=== PATIENT | male | born 1975 | race Caucasian/White ===

== ENCOUNTER 2024-03-17 18:09 | Emergency (ER) | payer MEDICAID, SELFPAY ==
--- NOTE | 2024-03-17 18:28 | EKG_ITS ---
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
[2024-03-17 19:07] VITALS: BP 157/93; PULSE 95; RESP 19; TEMP 36.9; O2SAT 99; BMI 22.8
--- NOTE | 2024-03-17 19:19 | PD.EDRME ---
Rapid Medical Screening Exam RME Arrival date/time: 03/17/24 18:09 49M with history of DM, HLD, DVT/PE, and recent admission for perianal nec fasc, presents to ED for similar sensation sensation but this time it is on the other cheek. Patient states this time it doesn't feel as bad. Patient is also having a hard time controlling his BS even though he is taking his meds as prescribed. Chief Complaint: Skin/Abscess/Foreign Body Vital signs: Vital Signs Temperature 98.4 F 03/17/24 19:07 Pulse Rate 95 03/17/24 19:07 Respiratory Rate 19 03/17/24 19:07 Blood Pressure 157/93 H 03/17/24 19:07 Pulse Oximetry (%) 99 03/17/24 19:07 Oxygen Delivery Method Room Air 03/17/24 19:07
[2024-03-17 19:39] LABS: Lactate (Lactic Acid) 1.7 mMol/L (0.4-2.0)
[2024-03-17 19:41] LABS: Beta Hydroxybutyrate 0.2 mmol/L (<0.6)
[2024-03-17 20:04] LABS: Basophils # (Auto) 0.1 Thou/mm3 (0.0-0.2); Basophils % (Auto) 1 % (0-2.5); Eosinophils # (Auto) 0.2 Thou/mm3 (0.0-0.5); Eosinophils % (Auto) 3 % (0-10); Hematocrit 41.2 % (41.0-53.0); Hemoglobin 15.4 g/dL (13.5-16.0); Immature Granulocytes % (Auto) 1 % (0-0); Immature Granulocytes Auto 0.04 Thou/mm3 (0.00-0.00); Lymphocytes # (Auto) 2.4 Thou/mm3 (1.0-4.8); Lymphocytes % (Auto) 31 % (10-50); Mean Corpuscular HGB Conc 37.4 g/dl (31.0-37.0); Mean Corpuscular Hemoglobin 30.4 pg (25.0-35.0); Mean Corpuscular Volume 81 fL (80-100); Monocytes # (Auto) 0.8 Thou/mm3 (0.0-0.8); Monocytes % (Auto) 10 % (0-12); Neutrophils # (Auto) 4.4 Thou/mm3 (1.8-7.7); Neutrophils % (Auto) 56 % (37-80); Nucleated Red Blood Cell % 0 /100 WBC (0); Platelet Count 165 Thou/mm3 (140-440); RDW Standard Deviation 39.6 fL (35.1-43.9); Red Blood Count 5.06 Miln/mm3 (4.50-5.90); White Blood Count 7.9 Thou/mm3 (3.8-10.6)
[2024-03-17 20:17] LABS: Alanine Aminotransferase 23 U/L (10-49); Albumin, Serum 4.8 gm/dL (3.5-5.0); Albumin/Globulin Ratio 1.9 (1.2-2.2); Alkaline Phosphatase 138 U/L (46-116); Anion Gap 6 (7-16); Aspartate Amino Transferase 17 U/L (0-34); BUN/Creatinine Ratio 14 Ratio (12-20); Bilirubin,Total 0.8 mg/dL (0.3-1.2); Blood Urea Nitrogen 26 mg/dL (9-23); Calcium 9.8 mg/dL (8.3-10.6); Calcium (Corrected) 9.8 mg/dL (8.5-10.1); Carbon Dioxide 26.6 mMol/L (20.0-31.0); Chloride 102 mMol/L (98-107); Creatinine (Component) 1.9 mg/dL (0.6-1.3); Estimated Creatinine Clearance 52.4 mL/min (>60); Globulin 2.5 gm/dL (2.3-3.5); Osmolality,Calculated 293 (275-295); Potassium 4.2 mMol/L (3.4-5.1); Procalcitonin 0.06 ng/ml (0.0-0.49); Sodium 135 mMol/L (136-145); Total Protein 7.3 gm/dL (5.7-8.2); eGFR 42 See Note
[2024-03-17 20:19] LABS: Glucose 443 mg/dL (74-106)
[2024-03-17 20:45] VITALS: BP 145/91; PULSE 90; RESP 19; TEMP 36.8; O2SAT 98
--- NOTE | 2024-03-17 20:58 | EDNOTE_ITS ---
ED Skin Abcess FB-RME/HPI General Chief complaint: Skin/Abscess/Foreign Body Stated complaint: NAUSEA, ZAVALA, DIZZINESS, HIGH BS, PAIN TO BUTTOCKS Arrival date/time: 03/17/24 18:09 Limitations: no limitations RME / HPI RME / HPI narrative: 03/17/24 18:09 49M with history of DM, HLD, DVT/PE, and recent admission for perianal nec fasc, presents to ED for similar sensation sensation but this time it is on the other cheek. Patient states this time it doesn't feel as bad. Patient is also having a hard time controlling his BS even though he is taking his meds as prescribed. DR. JOHNSON MAIN ED EVALUATION: 49 year old male presents to the Emergency Department with complaint of buttocks pain similar to when he was recently admitted for necrotizing fasciitis of the buttocks. He also has nausea, a headache and dizziness. He has also has been having trouble controlling his blood sugar. Related Data Home Medications ?Medication ?Instructions ?Recorded ?Confirmed gabapentin 300 mg capsule 300 mg PO TID 06/27/22 12/26/23 insulin aspart U-100 100 unit/mL 1 sliding scale dose subcut 06/27/22 12/26/23 (3 mL) subcutaneous pen (Novolog USEASDIRECTD FlexPen U-100 Insulin aspart) atorvastatin 40 mg tablet (Lipitor) 40 mg PO DAILY 05/13/23 12/26/23 empagliflozin 25 mg tablet 25 mg PO DAILY 05/13/23 12/26/23 (Jardiance) semaglutide 14 mg tablet (Rybelsus) 14 mg PO DAILY 05/13/23 12/26/23 fluticasone 500 mcg-salmeterol 50 2 inh inhalation DAILY 07/19/23 12/26/23 mcg/dose blistr powdr for inhalation (Advair Diskus) insulin degludec 200 unit/mL (3 15 unit subcut BID 07/19/23 12/26/23 mL) subcutaneous pen (Tresiba FlexTouch U-200 insulin) tamsulosin 0.4 mg capsule 0.4 mg PO DAILY 07/19/23 12/26/23 Previous Rx's ?Medication ?Instructions ?Recorded blood-glucose meter #1 ea 11/24/23 flash glucose scanning reader #1 ea 11/24/23 (FreeStyle Suzanne 2 Cameron) flash glucose sensor (FreeStyle #1 ea 11/24/23 Suzanne 2 Sensor kit) insulin syringe-needle U-100 0.3 #100 11/24/23 mL 31 x 1/2 pen needle, diabetic 33 gauge x #100 ea 11/24/23 1/4 Allergies Allergy/AdvReac Type Severity Reaction Status Date / Time Penicillins Allergy Severe Mouth Verified 12/26/23 10:49 blisters/throat Review of Systems Review of Systems Systems Reviewed: All systems reviewed, normal except as documented Endocrine Comments: elevated Blood sugars. Past Medical History Past Medical History NEUROLOGIC: Positive Meningitis, Peripheral Neuropathy and Migraine CARDIAC: Positive Hypercholesterolemia and Edema RESPIRATORY: Positive Asthma and Pulmonary Embolism GASTROINTESTINAL: Positive Ulcer GENITOURINARY: Positive Genitourinary Disorders MUSCULOSKELETAL: Positive Arthritis, Degenerative Disk Disease and Gout ENDOCRINE: Positive Diabetes Mellitus Type 2 OTHER HISTORY: Positive Hospitalization, Falls and Chicken Pox Family History FAMILY HISTORY: Positive Family Cancer, Family Surgery and Family Anesthesia Reaction Social History SMOKING STATUS: Never smoker SECOND HAND EXPOSURE: No SUBSTANCE USE: does not use ALCOHOL: Never ED Exam Narrative Physical exam: Patient appears clinically dehydrated with decreased membranes. Appears fatigued. General Limitations: Present no limitations General appearance: Present alert, in no apparent distress and other (No diaphoresis) Head Head exam: Present normocephalic Eye Eye exam: Present normal appearance and EOMI ENT ENT exam: Present normal exam, normal oropharynx and mucous membranes moist Neck Neck exam: Present normal inspection, full ROM and trachea midline Chest Chest inspection: Present normal inspection and symmetric chest wall rise Respiratory Respiratory exam: Present normal lung sounds bilaterally Cardiovascular Cardiovascular exam: Present regular rate, normal rhythm and normal heart sounds Abdominal Exam Abdominal exam: Present soft and normal bowel sounds Rectal Exam Rectal exam: Present normal inspection, normal rectal tone and other (No skin changes, erythema, warmth, or crepitus. No changes in the scrotal area or perineal.) Extremities Exam Extremities exam: Present normal inspection and full ROM Back Exam Back exam: Present normal inspection and full ROM Neurological Exam Neurological exam: Present alert and oriented X3 Psychiatric Psychiatric exam: Present normal affect; Absent agitated or anxious Skin Skin exam: Present warm, dry, intact and normal color Course Quality Measures none Orders Category Date Time Status Blood glucose [Bedside Blood Glucose] NOW Care 03/17/24 19:[address] Screening NOW Care 03/17/24 23:43 Completed EKG (ED ONLY) *Do not use* NOW Care 03/17/24 18:28 Completed Insert IV NOW Care 03/17/24 23:[address] abdomen pelvis w con Stat Exams 03/17/24 23:43 Completed EKG (ED Only) Stat Exams 03/17/24 18:28 Draft Beta Hydroxybutyrate Stat Lab 03/17/24 19:31 Completed CBC Stat Lab 03/17/24 20:00 Completed CMP [Comprehensive Metabolic Panel] Stat Lab 03/17/24 19:31 Completed Lactate (Lactic Acid) Stat Lab 03/17/24 19:31 Completed Procalcitonin Stat Lab 03/17/24 19:31 Completed Urinalysis Stat Lab 03/18/24 03:30 Completed Insulin Regular Med 03/17/24 23:43 Discontinued 10 unit IV X1 ONE Sodium Chloride 0.9% 1000 ml [Ns] 1,000 ml Med 03/17/24 23:42 Discontinued IV 999 mls/hr Sodium Chloride 0.9% 1000 ml [Ns] 1,000 ml Med 03/18/24 03:29 Discontinued IV 999 mls/hr Vital Signs Vital signs: Vital Signs Temperature 98.4 F 03/17/24 19:07 Pulse Rate 95 03/17/24 19:07 Respiratory Rate 19 03/17/24 19:07 Blood Pressure 157/93 H 03/17/24 19:07 Pulse Oximetry (%) 99 03/17/24 19:07 Oxygen Delivery Method Room Air 03/17/24 19:07 Procedures -ED EKG Interpretation #1: Date of EK03/17/24 Time of EK:13 Rate: 92 Interpretation: Interpreted by me Additional EKG comment: sinus rhythm, rate 92, normal intervals, normal axis, no elevations, no depressions Skin / Abscess / Foreign Body MDM Narrative MDM Narrative:: I, Gracia Ying, am scribing for and in the presence of Dr. Johnson. Patient data External records reviewed:: [facility] previous records (Reviewed general surgery note for necrotizing fasciitis by Dr. Lehman, dated 12/26/23.) Clinical information provided by:: patient Social determinants that could affect healthcare access:: none Patient has the following chronic illnesses:: Asthma, pulmonary embolism, diabetes, hypercholesterolemia. How is presenting disease/condition affected by chronic disease/condition?: uneffected by Evaluation data The following diagnostics were reviewed and interpreted by me:: lab results, radiology exam(s) and EKG tracing(s) Lab and/or radiology exams considered but not ordered:: none Interpretation Summary: See above under MDM narrative. ------ Telerad Preliminary Report Draft Patient: HELEN MENDES. Record#: [id number] Birthdate: 1975 Age/Sex: 49 / M Location: [facility] Attending Dr: Ordering Physician: Date of Service: Procedure(s): Accession Number(s): cc: ~ CT scan of the abdomen and pelvis with intravenous contrast (axial sections with sagittal and coronal reformats) March 18, 2024 at 0102 hours Clinical History: 49 year old with bilateral buttock pain. No prior study is available for comparison. Findings: The lung bases are clear. There are small hypodense lesions in the spleen, too small to characterise. The liver, gallbladder, pancreas, kidneys and adrenals are unremarkable. No evidence of bowel dilatation. There are occasional colonic diverticula without evidence of diverticulitis. The appendix is within normal limits. The urinary bladder wall is mildly thickened. There is mild prostatomegaly. There is no free fluid or free air. There is no adenopathy. Mild degenerative changes are identified in the spine. Impression: Findings suggestive of cystitis. Mild prostatomegaly. Other findings as described above. Report Electronically Signed By: Florentino Manning 03/18/2024 2:39:22 AM [EST] Medications / Prescriptions Medications or Prescriptions considered but not ordered:: none Medication administrations:: Medication Administration History Discontinued Medications Sodium Chloride (Ns) 1,000 mls @ 999 mls/hr IV .Q1H1M ONE Stop: 03/18/24 00:42 Last Infusion: 03/18/24 01:00 Dose: Infused Documented By: Admin: 03/17/24 23:51 Dose: 999 mls/hr Documented By: ADELA Sodium Chloride (Ns) 1,000 mls @ 999 mls/hr IV .Q1H1M ONE Stop: 03/18/24 04:29 Last Infusion: 03/18/24 04:12 Dose: 0 mls/hr Documented By: Admin: 03/18/24 04:12 Dose: 999 mls/hr Documented By: ADELA Insulin Human Regular (Insulin Hum Regular 1 Unit/0.01 Ml (Per Unit)) 10 unit IV X1 ONE Stop: 03/17/24 23:44 Last Admin: 03/17/24 23:53 Dose: 10 unit Documented By: ADELA Co-signed By: CYNDEE see above if any Consultations Consultation(s) initiated? (list below): No Diagnosis Skin/Abscess Differential Diagnosis: dermatophytosis, cellulitis, eczema, contact dermatitis and other (necrotizing fasciitis) Most likely diagnosis given after review of the tests above:: see below Admission Indicated Admission indicated?: not indicated Admission Request Was there a request for admission?: No Disposition Plan Disposition Plan: Discharge Discharge Attestation Discharge Attestation: The patient and all family members were given an opportunity to ask questions and understood the discharge instructions. Discharge instructions specifically effects, indications for sooner follow up or return to the emergency department, and the expected course of current diagnosis. Patient condition: Stable Discharge Plan Plan Patient Disposition: HOME (Self Care) Patient condition on transfer: Stable Prescriptions/Referrals Prescriptions/Med Rec: No Action tamsulosin 0.4 mg capsule 0.4 mg PO DAILY Patient Comments: TAKE 1 CAPSULE BY MOUTH TWICE A DAY FOR 30 DAYS fluticasone propion-salmeterol [Advair Diskus] 500-50 mcg/dose blister with device 2 inh INHALATION DAILY Patient Comments: INHALE 1 DOSE BY MOUTH TWICE DAILY. RINSE MOUTH AFTER USE FOR 30 DAYS insulin degludec [Tresiba FlexTouch U-200] 200 unit/mL (3 mL) insulin pen 15 unit SUBCUT BID Patient Comments: INJECT 50 UNITS SUBCUTANEOUSLY TWICE A DAY (DME) pen needle, diabetic 33 gauge x 1/4 needle See Rx Instructions .Route Qty: 100 0RF Rx Instructions: As directed (DME) insulin syringe-needle U-100 0.3 mL 31 x 1/2 syringe See Rx Instructions .Route Qty: 100 0RF Rx Instructions: As directed (DME) blood-glucose meter Kit See Rx Instructions .Route Qty: 1 0RF Rx Instructions: As directed (DME) FreeStyle Suzanne 2 Cameron Misc See Rx Instructions .Route Qty: 1 0RF Rx Instructions: As directed (DME) FreeStyle Suzanne 2 Sensor Kit See Rx Instructions .Route Qty: 1 0RF Rx Instructions: As directed gabapentin 300 mg Capsule 300 mg PO TID insulin aspart U-100 [Novolog FlexPen U-100 Insulin] 100 unit/mL (3 mL) Insulin Pen 1 sliding scale dose SUBCUT USEASDIRECTD atorvastatin [Lipitor] 40 mg tablet 40 mg PO DAILY Patient Comments: TAKE 1 TABLET BY MOUTH EVERY DAY FOR 90 DAYS Jardiance 25 mg tablet 25 mg PO DAILY Rybelsus 14 mg tablet 14 mg PO DAILY Patient Comments: TAKE 1 TABLET DAILY AT LEAST 30 MINUTES BEFORE 1ST FOOD, BEVERAGE, OR OTHER ORAL MEDICINE OF DAY Referrals: Robert Son MD [Primary Care Provider] - In 1 week Problem List Clinical Impression: Hyperglycemia Patient/Caregiver Discharge Instructions Education Materials: ED Diabetes with High Blood Sugar Additional Instructions: Return to the emergency department for any worsening symptoms or any other concerns. Today your CAT scan does not show that you have an infection. You can continue taking your medications as prescribed. Print Language: Setswana Stand Alone Forms: Sari Award Info., Patient Portal Info Letter
--- NOTE | 2024-03-17 23:43 | XR_ITS ---
Examination: CT abdomen with intravenous contrast CT pelvis with intravenous contrast 2-D coronal reconstructions 2-D sagittal reconstructions Date and time of exam:March 18, 2024 0102 hrs. Comparison November 18, 2023 Indications: Headaches nausea dizziness pain in the buttock region history necrotizing fasciitis, right perianal focus of infection early abscess 3.0 x 4.1 cm marked cellulitis right perineum right buttock region on CT abdomen November 18, 2023. CTDI: vol (mGy) 14.36 DLP: (mGycm) 652 Technique: Multiple axial sections of the abdomen and pelvis have been obtained. 64 slice high-resolution scanner used. 3 mm axial sections have been obtained, post intravenous injection 30 cc Isovue-300 2-D sagittal, coronal reconstructions obtained. Low dose protocols were performed. One or more of the following dose reduction techniques were used; automated exposure control, adjustment of the mA and/or KV according to patient size, use of iterative reconstruction technique. Findings: No focal liver or splenic lesions No gallstones No pancreatic or adrenal mass No renal or ureteral calculi, no hydronephrosis Aorta normal size Normal appendix No bowel obstruction Distended urinary bladder with diffuse urinary bladder wall thickening Normal seminal vesicles No significant prostatomegaly There is mild cellulitis pattern in the buttock region bilaterally extending to the intergluteal fold but no perianal abscess Impression: There is mild cellulitis pattern in the buttock region bilaterally extending to the intergluteal fold but no perianal abscess Distended urinary bladder with cystitis pattern
[2024-03-17] MEDS: SODIUM CHLORIDE 0.9% 1000 ML 1,000 ML 999 ML IV (23:51)
[2024-03-17] MEDS: INSULIN HUM REGULAR 1 UNIT/0.01 ML (PER UNIT) 10 UNIT IV (23:53)
[2024-03-18 00:21] VITALS: BP 137/77; PULSE 79; RESP 18; O2SAT 99
--- NOTE | 2024-03-18 02:40 | PRELIM_ITS ---
CT scan of the abdomen and pelvis with intravenous contrast (axial sections with sagittal and coronal reformats) March 18, 2024 at 0102 hoursClinical History: 49 year old with bilateral buttock pain. No prior study is available for comparison. Findings:The lung bases are clear.There are small hypoden se lesions in the spleen, too small to characterise. The liver, gallbladder, pancreas, kidneys and ad renals are unremarkable.No evidence of bowel dilatation. There are occasional colonic diverticula wit hout evidence of diverticulitis. The appendix is within normal limits. The urinary bladder wall is mi ldly thickened. There is mild prostatomegaly. There is no free fluid or free air. There is no adenop athy.Mild degenerative changes are identified in the spine. Impression:Findings suggestive of cystiti s.Mild prostatomegaly.Other findings as described above. Report Electronically Signed By: Florentino kessler 03/18/2024 2:39:22 AM [EST]
[2024-03-18 02:57] VITALS: BP 135/82; PULSE 73; RESP 19; TEMP 36.6; O2SAT 98
[2024-03-18 03:35] LABS: Collection Type, Urine Voided; RBC,Urine 0 /hpf (0-3); Squamous Epithelial Cell,Urine 0 /hpf (0-5); WBC,Urine 0 /hpf (0-5)
[2024-03-18 03:50] LABS: Bilirubin,Urine Negative (Negative); Blood,Urine Negative (Negative); Clarity,Urine Clear (Clear/Hazy); Color,Urine Lt-Yellow (Lt Yel-Yel); Glucose, Urine 4+ (Negative); Hyaline Casts,Urine < 1 /hpf (0-1); Ketones,Urine Negative (Negative); Leukocyte Esterase,Urine Negative (Negative); Nitrite,Urine Negative (Negative); Protein,Urine 1+ (Neg - Trace); Specific Gravity,Urine 1.027 (1.001-1.035); Urobilinogen,Urine Negative mg/dL (0.0-1.0)
[2024-03-18] MEDS: SODIUM CHLORIDE 0.9% 1000 ML 1,000 ML 999 ML IV (04:12)
[2024-03-18 04:41] VITALS: BP 144/91; PULSE 88; RESP 16; TEMP 36.7; O2SAT 100
== END 2024-03-18 04:42 | disposition home or self-care (01) ==
PROVIDERS: Physician Assistant; Emergency Provider Emergency Medicine; PCP Family Medicine
DX: E11.65 Type 2 diabetes mellitus with hyperglycemia (principal); N40.0 Benign prostatic hyperplasia without lower urinary tract symptoms; J45.909 Unspecified asthma, uncomplicated; E78.00 Pure hypercholesterolemia, unspecified
CPT/HCPCS: 36415; 74177; 80053; 81001; 82010; 83605; 84145; 85025; 93005; 96360; 99285; A4649; J1815; J7030; Q9967

== ENCOUNTER 2024-07-18 19:40 | Emergency (ER) | payer MEDICAID, SELFPAY ==
[2024-07-18 19:41] VITALS: BMI 28.5
[2024-07-18 20:02] VITALS: BP 148/89; PULSE 109; RESP 18; TEMP 36.9; O2SAT 98
[2024-07-18 20:37] LABS: Collection Type, Urine Clean Catch
[2024-07-18 20:48] LABS: Bilirubin,Urine Negative (Negative); Blood,Urine 2+ (Negative); Clarity,Urine Clear (Clear/Hazy); Color,Urine Yellow (Lt Yel-Yel); Culture Indicated,Urine Not Indicated; Glucose, Urine 3+ (Negative); Hyaline Casts,Urine < 1 /hpf (0-1); Ketones,Urine Negative (Negative); Leukocyte Esterase,Urine Negative (Negative); Nitrite,Urine Negative (Negative); Protein,Urine 3+ (Neg - Trace); RBC,Urine 20 /hpf (0-3); Specific Gravity,Urine 1.024 (1.001-1.035); Squamous Epithelial Cell,Urine < 1 /hpf (0-5); Urobilinogen,Urine Negative mg/dL (0.0-1.0); WBC,Urine 2 /hpf (0-5)
--- NOTE | 2024-07-18 20:58 | XR_ITS ---
Examination: CT abdomen and pelvis without contrast. Coronal 3-D reconstructions. Sagittal 2-D reconstructions. Date and time of exam:August 07, 2024 2139 hrs. Indications: Pain with urination hematuria beginning yesterday CTDI: vol (mGy): 7.93 DLP: (mGycm): 522 Technique: Axial images of the abdomen have been obtained, 3 mm slice thickness Intravenous contrast material has not been administered. Low dose protocols were performed. One or more of the following dose reduction techniques were used; automated exposure control, adjustment of the mA and/or KV according to patient size, use of iterative reconstruction technique. Findings: No focal liver or splenic lesions Contracted gallbladder No pancreatic or adrenal mass No renal or ureteral calculi Aorta normal size Abundant stool right colon Normal appendix No bowel obstruction No diverticulitis Marked abnormal thickening of urinary bladder wall, 16mm Prostatomegaly mediolateral dimension 4.7 cm Mild cellulitis pattern in the buttock region bilaterally axial image 275, no perianal abscess Mild osteopenia Impression: No renal or ureteral calculi Normal appendix Marked abnormal thickening of urinary bladder, 16 mm, differential would include cystitis, urinary tract outflow obstruction secondary to prostatomegaly, bladder carcinoma not excluded, clinical correlation advised Consider cystoscopy follow-up Moderate prostatomegaly Mild cellulitis pattern in the buttock region bilaterally
[2024-07-18] MEDS: TRIMETHOPRIM/SULFA 160/800 DS TABLET 1 TAB PO (23:43)
--- NOTE | 2024-07-19 01:31 | PD.EDMALE ---
ED Male Genitalurinary RME/HPI General Chief complaint: Urogenital-Male Stated complaint: PAIN WITH URINATION X2DAYS Time Seen by Provider: 07/18/24 20:12 Arrival date/time: 07/18/24 19:40 49M with history of DM presents to ED with 2 days of dysuria. Limitations: no limitations Related Data Home Medications ?Medication ?Instructions ?Recorded ?Confirmed gabapentin 300 mg capsule 300 mg PO TID 06/27/22 12/26/23 insulin aspart U-100 100 unit/mL 1 sliding scale dose subcut 06/27/22 12/26/23 (3 mL) subcutaneous pen (Novolog USEASDIRECTD FlexPen U-100 Insulin aspart) atorvastatin 40 mg tablet (Lipitor) 40 mg PO DAILY 05/13/23 12/26/23 empagliflozin 25 mg tablet 25 mg PO DAILY 05/13/23 12/26/23 (Jardiance) semaglutide 14 mg tablet (Rybelsus) 14 mg PO DAILY 05/13/23 12/26/23 fluticasone 500 mcg-salmeterol 50 2 inh inhalation DAILY 07/19/23 12/26/23 mcg/dose blistr powdr for inhalation (Advair Diskus) insulin degludec 200 unit/mL (3 15 unit subcut BID 07/19/23 12/26/23 mL) subcutaneous pen (Tresiba FlexTouch U-200 insulin) tamsulosin 0.4 mg capsule 0.4 mg PO DAILY 07/19/23 12/26/23 Previous Rx's ?Medication ?Instructions ?Recorded blood-glucose meter #1 11/24/23 flash glucose scanning reader #1 11/24/23 (FreeStyle Suzanne 2 [place]) flash glucose sensor (FreeStyle #1 11/24/23 Suzanne 2 Sensor kit) insulin syringe-needle U-100 0.3 #100 11/24/23 mL 31 x 1/2 pen needle, diabetic 33 gauge x #100 11/24/23/4 sulfamethoxazole 800 1 tab PO BID 7 days #14 tabs 07/18/24 mg-trimethoprim 160 mg tablet (Bactrim DS) Allergies Allergy/AdvReac Type Severity Reaction Status Date / Time Penicillins Allergy Severe Mouth Verified 12/26/23 10:49 blisters/throat Review of Systems Review of Systems Systems Reviewed: All systems reviewed, normal except as documented Constitutional Constitutional: Reports system reviewed and no additional complaints, except as documented, Denies fever(s) and Denies headache(s) ENT Ears, Nose, Mouth, and Throat: Denies disequilibrium and Denies headache(s) Cardiovascular Cardiovascular: Reports system reviewed and no additional complaints, except as documented, Denies chest pain and Denies dyspnea Respiratory Respiratory: Reports system reviewed and no additional complaints, except as documented, Denies cough and Denies dyspnea Gastrointestinal Gastrointestinal: Reports system reviewed and no additional complaints, except as documented, Denies abdominal pain, Denies nausea and Denies vomiting Genitourinary Genitourinary: Reports as per HPI and Reports dysuria Neurologic Neurologic: Reports system reviewed and no additional complaints, except as documented, Denies confusion, Denies disequilibrium and Denies headache(s) Psychiatric Psychiatric: Denies confusion Past Medical History Past Medical History NEUROLOGIC: Positive Meningitis, Peripheral Neuropathy and Migraine; Negative Neurological Disorders or Seizures CARDIAC: Positive Cardiac Disorders, Hypercholesterolemia and Edema; Negative Cardiac Arrhythmia, Atrial Fibrillation, Angina, Coronary Artery Disease, Atherosclerotic Heart Disease, Aneurysm, Congestive Heart Failure, Deep Vein Thrombosis or Hypertension RESPIRATORY: Positive Pulmonary Embolism; Negative Chronic Obstructive Pulmonary Disease (COPD) or Asthma GASTROINTESTINAL: Positive Ulcer; Negative Gastrointestinal Disorders, Hepatitis or Colorectal Cancer GENITOURINARY: Positive Genitourinary Disorders; Negative Renal Disease or Prostate Cancer REPRODUCTIVE: Negative Breast Cancer or Testicular Cancer MUSCULOSKELETAL: Positive Arthritis, Degenerative Disk Disease and Gout; Negative Musculoskeletal Disorders, Bone Cancer or Fractures ENDOCRINE: Positive Diabetes Mellitus Type 2; Negative Endocrine Disorders or Diabetes Mellitus Type 1 HEMATOLOGIC: Negative Blood Disorders or Sickle Cell Disease PSYCHO/SOCIAL: Negative Depression or Anxiety OTHER HISTORY: Positive Hospitalization, Falls and Chicken Pox; Negative Autoimmune Disease, Down Syndrome, Developmental Delay, Shingles, Blood Transfusions, Blood Transfusion Reaction, Anesthesia Reactions, Organ Transplant, Chemotherapy, Radiation Therapy, Hyperbaric Therapy, MRSA, VRSA, Vancomycin-Resistant Enterococci, Human Immunodeficiency Virus (HIV), Measles, Mumps, Rubella ([place] Measles), Pertussis, Clostridium Difficile, Breast Cancer, Colorectal Cancer, Lung Cancer, Prostate Cancer or Testicular Cancer Family History FAMILY HISTORY: Positive Family Cancer, Family Surgery and Family Anesthesia Reaction; Negative Family Psychiatric Problems, Family Respiratory Disorders, Family Cardiac Disorders or Family Gastrointestinal Problems Surgical History SURGICAL: Negative Organ Transplant Social History SMOKING STATUS: Never smoker SECOND HAND EXPOSURE: No SUBSTANCE USE: does not use ED Exam General Limitations: Present no limitations General appearance: Present alert and in no apparent distress Head Head exam: Present atraumatic Eye Eye exam: Present normal appearance, PERRL and EOMI ENT ENT exam: Present normal exam, normal oropharynx and mucous membranes moist Neck Neck exam: Present normal inspection, full ROM and trachea midline Chest Chest inspection: Present normal inspection and symmetric chest wall rise Respiratory Respiratory exam: Present normal lung sounds bilaterally Cardiovascular Cardiovascular exam: Present regular rate, normal rhythm and normal heart sounds Abdominal Exam Abdominal exam: Present soft and normal bowel sounds Rectal Exam Rectal exam: Present other (bilateral buttock redness/tenderness (mild)) Extremities Exam Extremities exam: Present normal inspection and full ROM Back Exam Back exam: Present normal inspection and full ROM Neurological Exam Neurological exam: Present alert, oriented X3 and CN II-XII intact Psychiatric Psychiatric exam: Present normal affect and normal mood Skin Skin exam: Present warm, dry, intact and normal color Course Quality Measures none Orders Category Date Time Status CT abdomen pelvis wo con Stat Exams 07/18/24 20:58 Completed Urinalysis, C/S if Indicated Stat Lab 07/18/24 20:17 Completed Trimethoprim/Sulfa 160/800 Ds [Bactrim Ds] Med 07/18/24 23:26 Discontinued 1 tab PO X1 ONE Vital Signs Vital signs: Vital Signs Temperature 98.4 F 07/18/24 20:02 Pulse Rate 109 H 07/18/24 20:02 Respiratory Rate 18 07/18/24 20:02 Blood Pressure 148/89 H 07/18/24 20:02 Pulse Oximetry (%) 98 07/18/24 20:02 Oxygen Delivery Method Room Air 07/18/24 20:02 O2 at 98% on RA and WNLs Urogenital - Male MDM Narrative MDM Narrative:: 49M with history of DM presents to ED with 2 days of dysuria. Physical exam reveals no CVA/flank tenderness. Patient is afebrile, calm, and alert. UA only blood. CT reveals no kidney stone, possible cystitis vs early bladder cancer. Separately, CT states possible mild bilateral buttock cellulitis. Physical exam with credit products officer reveals mild redness and tenderness around buttock area. Patient states he recently had nec fasc in that area, but this feels different. Will give Bactrim to cover cellulitis and possible UTI. Counseled to see PCP for additional evaluation for possible bladder cancer. Patient data External records reviewed:: [facility] previous records Clinical information provided by:: patient Social determinants that could affect healthcare access:: none Patient has the following chronic illnesses:: DM How is presenting disease/condition affected by chronic disease/condition?: exacerbated by Evaluation data The following diagnostics were reviewed and interpreted by me:: lab results and radiology exam(s) Lab and/or radiology exams considered but not ordered:: ordered Interpretation Summary: above Medications / Prescriptions Medications or Prescriptions considered but not ordered:: ordered Medication administrations:: Medication Administration History Discontinued Medications Trimethoprim/Sulfamethoxazole (Trimethoprim/Sulfa 160/800 Ds Tablet) 1 tab PO X1 ONE Stop: 07/18/24 23:27 Last Admin: 07/18/24 23:43 Dose: 1 tab Documented By: KF above Consultations Consultation(s) initiated? (list below): No Diagnosis Urogenital Male Differential Diagnosis: urinary tract infection, urethritis, epididymitis, genital herpes simplex, prostatitis, acute retention of urine, inguinal hernia and other (dysuria and cellulitis) Most likely diagnosis given after review of the tests above:: dysuria and cellulitis Admission Indicated Admission indicated?: not indicated Admission Request Was there a request for admission?: No Disposition Plan Disposition Plan: Discharge Discharge Attestation Discharge Attestation: The patient and all family members were given an opportunity to ask questions and understood the discharge instructions. Discharge instructions specifically effects, indications for sooner follow up or return to the emergency department, and the expected course of current diagnosis. Patient condition: Stable Discharge Plan Plan Patient Disposition: HOME (Self Care) Disposition Comment: Stable Prescriptions/Referrals Prescriptions/Med Rec: New sulfamethoxazole-trimethoprim [Bactrim DS] 800-160 mg tablet 1 tab PO BID 7 Days Qty: 14 0RF No Action tamsulosin 0.4 mg capsule 0.4 mg PO DAILY Patient Comments: TAKE 1 CAPSULE BY MOUTH TWICE A DAY FOR 30 DAYS fluticasone propion-salmeterol [Advair Diskus] 500-50 mcg/dose blister with device 2 inh INHALATION DAILY Patient Comments: INHALE 1 DOSE BY MOUTH TWICE DAILY. RINSE MOUTH AFTER USE FOR 30 DAYS insulin degludec [Tresiba FlexTouch U-200] 200 unit/mL (3 mL) insulin pen 15 unit SUBCUT BID Patient Comments: INJECT 50 UNITS SUBCUTANEOUSLY TWICE A DAY (DME) pen needle, diabetic 33 gauge x 1/4 needle See Rx Instructions .Route Qty: 100 0RF Rx Instructions: As directed (DME) insulin syringe-needle U-100 0.3 mL 31 x 1/2 syringe See Rx Instructions .Route Qty: 100 0RF Rx Instructions: As directed (DME) blood-glucose meter Kit See Rx Instructions .Route Qty: 1 0RF Rx Instructions: As directed (DME) FreeStyle Suzanne 2 [place] Misc See Rx Instructions .Route Qty: 1 0RF Rx Instructions: As directed (DME) FreeStyle Suzanne 2 Sensor Kit See Rx Instructions .Route Qty: 1 0RF Rx Instructions: As directed gabapentin 300 mg Capsule 300 mg PO TID insulin aspart U-100 [Novolog FlexPen U-100 Insulin] 100 unit/mL (3 mL) Insulin Pen 1 sliding scale dose SUBCUT USEASDIRECTD atorvastatin [Lipitor] 40 mg tablet 40 mg PO DAILY Patient Comments: TAKE 1 TABLET BY MOUTH EVERY DAY FOR 90 DAYS Jardiance 25 mg tablet 25 mg PO DAILY Rybelsus 14 mg tablet 14 mg PO DAILY Patient Comments: TAKE 1 TABLET DAILY AT LEAST 30 MINUTES BEFORE 1ST FOOD, BEVERAGE, OR OTHER ORAL MEDICINE OF DAY Referrals: Robert Son MD [Primary Care Provider] - In 1 week Problem List Clinical Impression: Cellulitis, Dysuria Patient/Caregiver Discharge Instructions Education Materials: Dysuria, ED Cellulitis Additional Instructions: Please follow-up with PCP within 24-48 hours and return immediately if symptoms worsen. Follow-up with PCP/urologist for additional evaluation. Print Language: Vietnamese Stand Alone Forms: Patient Portal Info Letter KASEY/STAVE [employer] Supervising Physician KASEY/NAIMA Supervising Physician: Dr. Santiago
== END 2024-07-18 23:44 | disposition home or self-care (01) ==
PROVIDERS: Physician Assistant; Emergency Provider Emergency Medicine; PCP Family Medicine
DX: L03.317 Cellulitis of buttock (principal); R30.0 Dysuria; E11.42 Type 2 diabetes mellitus with diabetic polyneuropathy; E78.00 Pure hypercholesterolemia, unspecified
CPT/HCPCS: 74176; 81001; 99284; A9270

== ENCOUNTER → 2024-11-13 | Outpatient (CLI) | payer MEDICAID, SELFPAY ==
--- NOTE | 2024-11-13 08:45 | XR_ITS ---
Examination: Retroperitoneal ultrasound, complete Technique: Multiple high resolution grayscale images of the retroperitoneum obtained, including kidneys and bladder. Exam date and time:November 13, 2024 0851 hours INDICATIONS: Chronic kidney disease stage III a FINDINGS: Right kidney 11.9 cm cortex 1.2 cm Left kidney 13.6 cm renal cortex 1.3 cm No hydronephrosis or renal calculi Bladder prevoid volume 765 cc unable to void Prostate volume 52 cc no prostate nodules IMPRESSION: Bilateral renal cortical thinning No hydronephrosis or renal calculi Moderate prostatomegaly
[2024-11-13 09:40] LABS: Collection Type, Urine Clean Catch; Squamous Epithelial Cell,Urine 0 /hpf (0-5)
[2024-11-13 10:09] LABS: Glucose Estimated Average 286 mg/dL (80-131); Hemoglobin A1C 11.6 % Hgb (4.8-6.0)
[2024-11-13 10:10] LABS: Parathyroid Hormone Intact 43.0 pg/ml (18.5-88.0)
[2024-11-13 10:14] LABS: Vitamin D 25 Hydroxy Total 13.1 ng/mL (7.3-40.2)
[2024-11-13 10:16] LABS: Albumin, Serum 4.2 gm/dL (3.5-5.0); Anion Gap 10 (7-16); BUN/Creatinine Ratio 13 Ratio (12-20); Blood Urea Nitrogen 23 mg/dL (9-23); Calcium 9.5 mg/dL (8.3-10.6); Calcium (Corrected) 9.5 mg/dL (8.5-10.1); Carbon Dioxide 26.2 mMol/L (20.0-31.0); Chloride 107 mMol/L (98-107); Creatinine (Component) 1.8 mg/dL (0.6-1.3); Glucose 152 mg/dL (74-106); Osmolality,Calculated 291 (275-295); Phosphorous 3.6 mg/dL (2.4-5.1); Potassium 4.7 mMol/L (3.4-5.1); Sodium 143 mMol/L (136-145); eGFR 45 See Note
[2024-11-13 10:24] LABS: Bilirubin,Urine Negative (Negative); Blood,Urine 1+ (Negative); Clarity,Urine Clear (Clear/Hazy); Color,Urine Lt-Yellow (Lt Yel-Yel); Glucose, Urine 4+ (Negative); Hyaline Casts,Urine < 1 /hpf (0-1); Ketones,Urine Negative (Negative); Leukocyte Esterase,Urine Negative (Negative); Nitrite,Urine Negative (Negative); PH,Urine 6.0 (5.0-7.0); Protein,Urine 2+ (Neg - Trace); RBC,Urine 2 /hpf (0-3); Specific Gravity,Urine 1.012 (1.001-1.035); Urobilinogen,Urine Negative mg/dL (0.0-1.0); WBC,Urine < 1 /hpf (0-5)
[2024-11-13 10:26] LABS: Creatinine MALB Rnd Ur 79 mg/dL (30-125)
[2024-11-13 10:36] LABS: Microalbumin Creat Ratio 1548 mg/gCrea (<30); Microalbumin, Random Urine 1223 mg/L (0-300)
[2024-11-16 06:30] LABS: C-Peptide* 1.41 ng/mL (0.80-3.85)
== END | disposition home or self-care (01) ==
LOC: CDIM 08:33 → COPL 09:04
PROVIDERS: Referring Provider Internal Medicine; Visit Provider Radiology Diagnostic Radiology
DX: N28.89 Other specified disorders of kidney and ureter (principal); N40.0 Benign prostatic hyperplasia without lower urinary tract symptoms; I12.9 Hypertensive chronic kidney disease with stage 1 through stage 4 chronic kidney disease, or unspecified chronic kidney disease; E11.22 Type 2 diabetes mellitus with diabetic chronic kidney disease; N18.32 Chronic kidney disease, stage 3b; E78.5 Hyperlipidemia, unspecified
CPT/HCPCS: 36415; 76770; 80069; 81001; 82043; 82306; 82570; 83036; 83970; 84681

== ENCOUNTER 2024-11-16 21:26 | Emergency (ER) | payer MEDICAID, SELFPAY ==
[2024-11-16 21:27] VITALS: BMI 28.5
[2024-11-16 22:36] VITALS: BP 131/78; PULSE 88; RESP 20; TEMP 36.9; O2SAT 97
--- NOTE | 2024-11-16 22:52 | XR_ITS ---
Examination: Arterial duplex lower extremity study, unilateral left Date and time of exam: November 16, 2024 at 1142 hours INDICATIONS: Left leg swelling and pain beginning several days ago Findings: Duplex sonographic imaging of the lower extremity arteries using B-mode/Keith scale imaging and Doppler spectral analysis and color flow. Ankle brachial indices have been recorded. Left common femoral artery demonstrates triphasic flow. Left superficial femoral artery demonstrates triphasic flow. Left popliteal artery demonstrates triphasic flow. Left posterior tibial artery demonstrated monophasic flow. Left ankle/brachial index is 1.1. Impression: Abnormal study, monophasic and markedly reduced flow in the left posterior tibial artery, please see the CTA lower extremity runoff study this morning
--- NOTE | 2024-11-16 22:52 | XR_ITS ---
Examination: Duplex scan of the lower extremity, unilateral left Date and time of exam: November 16, 2024 11:35 PM INDICATIONS: Left leg swelling and pain several days Technique: Duplex scan of the extremity veins using B-mode/grayscale imaging and Doppler spectral analysis and color flow Attention is directed to internal echogenicity, compression and augmentation involving these veins, color flow assessment, spectral analysis Findings: Major deep venous structures in the extremity demonstrate normal course and caliber. There is no evidence of deep vein thrombosis. Normal color flow and spectral analysis Impression: Negative for DVT..
[2024-11-16 23:23] LABS: Basophils # (Auto) 0.0 Thou/mm3 (0.0-0.2); Basophils % (Auto) 1 % (0-2.5); Eosinophils # (Auto) 0.6 Thou/mm3 (0.0-0.5); Eosinophils % (Auto) 9 % (0-10); Hematocrit 37.1 % (41.0-53.0); Hemoglobin 13.3 g/dL (13.5-16.0); Immature Granulocytes Auto 0.02 Thou/mm3 (0.00-0.00); Lymphocytes # (Auto) 1.9 Thou/mm3 (1.0-4.8); Lymphocytes % (Auto) 29 % (10-50); Mean Corpuscular HGB Conc 35.8 g/dl (31.0-37.0); Mean Corpuscular Hemoglobin 31.4 pg (25.0-35.0); Mean Corpuscular Volume 88 fL (80-100); Monocytes # (Auto) 0.5 Thou/mm3 (0.0-0.8); Monocytes % (Auto) 7 % (0-12); Neutrophils # (Auto) 3.5 Thou/mm3 (1.8-7.7); Neutrophils % (Auto) 53 % (37-80); Nucleated Red Blood Cell # 0.00 Thou/mm3 (0.00-0.00); Nucleated Red Blood Cell % 0 /100 WBC (0); Platelet Count 133 Thou/mm3 (140-440); RDW Standard Deviation 40.3 fL (35.1-43.9); Red Blood Count 4.23 Miln/mm3 (4.50-5.90); White Blood Count 6.6 Thou/mm3 (3.8-10.6)
[2024-11-16 23:34] LABS: INR 1.0 (0.9-1.3); Partial Thromboplastin Time 27.6 Seconds (22.0-36.0); Prothrombin Time 10.5 Seconds (9.0-12.2)
[2024-11-16 23:38] LABS: Alanine Aminotransferase 14 U/L (10-49); Albumin, Serum 4.0 gm/dL (3.5-5.0); Albumin/Globulin Ratio 2.1 (1.2-2.2); Alkaline Phosphatase 104 U/L (46-116); Anion Gap 9 (7-16); Aspartate Amino Transferase 13 U/L (0-34); BUN/Creatinine Ratio 12 Ratio (12-20); Bilirubin,Total 0.5 mg/dL (0.3-1.2); Blood Urea Nitrogen 23 mg/dL (9-23); Calcium 9.1 mg/dL (8.3-10.6); Calcium (Corrected) 9.1 mg/dL (8.5-10.1); Carbon Dioxide 27.3 mMol/L (20.0-31.0); Chloride 102 mMol/L (98-107); Creatinine (Component) 1.9 mg/dL (0.6-1.3); Estimated Creatinine Clearance 55.1 mL/min (>60); Globulin 1.9 gm/dL (2.3-3.5); Glucose 237 mg/dL (74-106); Osmolality,Calculated 287 (275-295); Potassium 4.4 mMol/L (3.4-5.1); Sodium 138 mMol/L (136-145); Total Protein 5.9 gm/dL (5.7-8.2); eGFR 42 See Note
--- NOTE | 2024-11-17 00:21 | XR_ITS ---
Examination: CT left knee, without contrast. 2-D sagittal reconstructions. 2-D coronal reconstructions. 3-D reconstructions. Date and time of exam:November 17, 2024, 0114 hours INDICATIONS: Patient fell today with injury to the knee, knee pain CTDI: vol (mGy):10.31 DLP: (mGycm):383 Technique: Multiple 1.25 mm axial sections of the left knee without intravenous contrast have been obtained. 2-D sagittal and coronal reconstructions have been obtained. 3-D reconstructions have been obtained. Low dose protocols were performed. One or more of the following dose reduction techniques were used; automated exposure control, adjustment of the mA and/or KV according to patient size, use of iterative reconstruction technique. Findings: Distal femur femoral condyles intact Widening of the medial patellofemoral joint space Patellae intact Tibial plateau proximal tibia, fibular head and neck intact Meniscus calcification Moderate knee effusion Quadriceps patellar tendons appear intact IMPRESSION: No acute fracture Moderate knee effusion Widening of the medial patellofemoral joint space which may relate to prior patellar dislocation MRI knee without contrast follow-up would best assess for tear of the medial patellar retinaculum
--- NOTE | 2024-11-17 01:51 | PRELIM_ITS ---
Left lower extremity venous Doppler ultrasound. November 16, 2024 at 2335 hours Clinical history: Rule out deep vein thrombosis. Technique: Duplex scan of the left lower extremity deep venous systems was performed utilizing 2D grayscale imaging, Doppler spectral analysis and color flow Doppler and with compression. Comparison: Compared with the prior study dated December 31, 2021. Findings: Keith scale, color flow and spectral Doppler evaluation of the left lower extremity deep veins was performed. The common femoral, superficial femoral and popliteal veins are patent and compressible. Normal respiratory variation and augmentation are noted. The great saphenous vein is patent and compressible at the level of the saphenofemoral junction. The calf veins to the extent visualized are patent. There is no evidence of occlusive or nonocclusive thrombus. Impression: No sonographic evidence of deep venous thrombosis in the left lower extremity at this time. Report Electronically Signed By: Nils Erazo 11/17/2024 1:51:04 AM [EST]
--- NOTE | 2024-11-17 02:10 | PRELIM_ITS ---
CT left knee without intravenous contrast (axial sections with sagittal and coronal reformats. 3D reconstructed images were also provided. November 17, 2024 0114 hours Clinical History: Knee swelling without fall/trauma. Comparison: No prior study is available for comparison. Findings: Axial relationships at the left knee joint are maintained. No evidence of fracture or dislocation. Mild degenerative changes are seen. Meniscal and ligament calcifications are seen, of unclear etiology. Moderate effusion is seen in the knee joint. No Turner's cyst. The muscles are unremarkable with laine ntained intermuscular fat planes. Atheromatous vascular calcification is noted. A few varicose veins are seen in the leg medially. There is diffuse subcutaneous fat stranding and edema in the distal thigh, around the knee and leg, incompletely imaged. No evidence of discrete loculated drainable soft tissue fluid collection, hematoma or abscess on this noncontrast study. No evidence of soft tissue gas. Impression: 1. No evidence of fracture or dislocation. 2. Moderate knee joint effusion, of unclear etiology. 3. Diffuse subcutaneous fat stranding and edema in the distal thigh, around the knee and leg, incompletely imaged, of unclear etiology. 4. Other findings as described above. Recommend clinical correlation and follow-up. Report Electronically Signed By: Nils Erazo 11/17/2024 2:09:48 AM [EST]
--- NOTE | 2024-11-17 02:33 | PRELIM_ITS ---
Left lower extremity arterial Doppler ultrasound. November 16, 2024 2342 hours Clinical history: Pain/swelling Comparison: No prior study is available for comparison. Findings: Keith scale, color and spectral Doppler imaging of the left lower extremity arteries were performed. There are calcified plaques in the femoral, popliteal and infrapopliteal arteries. The common femoral, proximal, mid and distal (superficial) femoral and popliteal arteries demonstrate normal triphasic flow pattern with mildly increased velocities and good color flow. The posterior tibial artery demo nstrates monophasic flow pattern with reduced peak systolic velocity at 17.5 cm/sec. The peroneal, anterior tibial and dorsalis pedis arteries also demonstrate biphasic/triphasic wave pattern with mildly increased velocities. Impression: Monophasic flow pattern with reduced peak systolic velocity of the left posterior tibial artery suggestive of proximal high grade stenosis or short segment occlusion. Recommend clinical correlation and follow up. Moderate atheromatous changes in the left lower extremity arteries as described above. Report Electronically Signed By: Brayden Lovell 11/17/2024 2:33:18 AM [EST]
--- NOTE | 2024-11-17 02:37 | XR_ITS ---
Examination: CTA abdominal aorta iliofemoral runoff. 2-D sagittal coronal reconstructions. 3-D reconstructions, vascular Date and time: November 17, 2024, 0336 hours INDICATIONS: Left lower extremity swelling and pain after long road trip 3 hours ago Technique: Multiple CTA images of the abdominal aorta iliofemoral runoff arterial vessels, 2.0 mm slice thickness, post intravenous administration 60 cc Isovue 300 2-D sagittal coronal reconstructions. 3-D reconstructions, vascular 3-D postprocessing, including vascular maximum intensity projection images, 3-D volume rendering Low dose protocols were performed. One or more of the following dose reduction techniques were used; automated exposure control, adjustment of the mA and/or KV according to patient size, use of iterative reconstruction technique. Findings: Negative for aneurysmal dilatation abdominal aorta Moderate calcification abdominal aorta Distended urinary bladder Transverse prostate dimension 4.9 cm Common iliac internal iliac and external iliac and common femoral arteries intact Right superficial femoral artery intact as well as right popliteal artery Right anterior tibial and posterior tibial and main continuation trunks fill to the ankle with filling of the dorsalis pedis artery Left superficial femoral artery fills with no significant stenoses Left popliteal artery and tacked There is filling of the left anterior tibial and main continuation trunk There is occlusion of the left posterior tibial artery Collateral arterial filling is evident of the dorsalis pedis artery There is edema in the subcutaneous fatty tissues surrounding the lower leg on the left and ankle more prominent compared to the right IMPRESSION: Occlusion of the left posterior tibial artery
[2024-11-17 02:41] LABS: Sed Rate (ESR) 14 mm/hr (0-20)
[2024-11-17 02:56] LABS: C-Reactive Protein 1.7 mg/dL (0.0-0.9)
[2024-11-17 03:19] VITALS: BP 167/98; PULSE 79; RESP 19; O2SAT 99
--- NOTE | 2024-11-17 03:49 | EDNOTE_ITS ---
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 Limitations: no limitations Related Data Home Medications ?Medication ?Instructions ?Recorded ?Confirmed gabapentin 300 mg capsule 300 mg PO TID 06/27/2212/25 insulin aspart U-100 100 unit/mL 1 sliding scale dose subcut 06/27/22 12/26/23 (3 mL) subcutaneous pen (Novolog USEASDIRECTD FlexPen U-100 Insulin aspart) atorvastatin 40 mg tablet (Lipitor) 40 mg PO DAILY 06/0412/26/23 empagliflozin 25 mg tablet 25 mg PO DAILY 05/13/23 (Jardiance) semaglutide 14 mg tablet (Rybelsus) 14 mg PO DAILY 06/0412/26/23 fluticasone 500 mcg-salmeterol 50 2 inh inhalation BETO LY 07/19/23 12/26/23 mcg/dose blistr powdr for inhalation (Advair Diskus) insulin degludec 200 unit/mL (3 15 unit subcut BID 01/0212/26/23 mL) subcutaneous pen (Tresiba FlexTouch U-200 insulin) tamsulosin 0.4 mg capsule 0.4 mg PO DAILY 07/19/23 Previous Rx's ?Medication ?Instructions ?Recorded blood-glucose meter #1 ea 11/24/23 flash glucose scanning reader #1 ea 11/24/23 (FreeStyle Suz[place] 2 [place]) flash glucose sensor (FreeStyle #1 ea 11/24/23 Suzanne 2 Sensor kit) insulin syringe-needle U-100 0.3 #100 ea 11/24/23 mL 31 x 1/2 pen needle, diabetic 33 gauge x #100 ea 11/24/23 1/4 Allergies Allergy/AdvReac Type Severity Reaction Status Date / Time Penicillins Allergy Severe Mouth Verified 11/16/24 21:27 blisters/throat Review of Systems Review of Systems Systems Reviewed: All systems reviewed, normal except as documented Constitutional Constitutional: Reports system reviewed and no additional complaints, except as documented, Denies fever(s) and Denies headache(s) ENT Ears, Nose, Mouth, and Throat: Denies disequilibrium and Denies headache(s) Cardiovascular Cardiovascular: Reports system reviewed and no additional complaints, except as documented, Denies chest pain and Denies dyspnea Respiratory Respiratory: Reports system reviewed and no additional complaints, except as documented, Denies cough and Denies dyspnea Gastrointestinal Gastrointestinal: Reports system reviewed and no additional complaints, except as documented, Denies abdominal pain, Denies nausea and Denies vomiting Musculoskeletal Musculoskeletal: Reports as per HPI and Reports radiating pain into limb Neurologic Neurologic: Reports system reviewed and no additional complaints, except as documented, Denies confusion, Denies disequilibrium and Denies headache(s) Psychiatric Psychiatric: Denies confusion Past Medical History Past Medical History NEUROLOGIC: Positive Meningitis, Peripheral Neuropathy and Migraine; Negative Neurological Disorders or Seizures CARDIAC: Positive Cardiac Disorders, Hypercholesterolemia and Edema; Negative Cardiac Arrhythmia, Atrial Fibrillation, Angina, Coronary Artery Disease, Atherosclerotic Heart Disease, Aneurysm, Congestive Heart Failure, Deep Vein Thrombosis or Hypertension RESPIRATORY: Positive Pulmonary Embolism; Negative Chronic Obstructive Pulmonary Disease (COPD) or Asthma GASTROINTESTINAL: Positive Ulcer; Negative Gastrointestinal Disorders, Hepatitis or Colorectal Cancer GENITOURINARY: Positive Genitourinary Disorders; Negative Renal Disease or Prostate Cancer REPRODUCTIVE: Negative Breast Cancer or Testicular Cancer MUSCULOSKELETAL: Positive Arthritis, Degenerative Disk Disease and Gout; Negative Musculoskeletal Disorders, Bone Cancer or Fractures ENDOCRINE: Positive Diabetes Mellitus Type 2; Negative Endocrine Disorders or Diabetes Mellitus Type 1 HEMATOLOGIC: Negative Blood Disorders or Sickle Cell Disease PSYCHO/SOCIAL: Negative Depression or Anxiety OTHER HISTORY: Positive Hospitalization, Falls and Chicken Pox; Negative Autoimmune Disease, Down Syndrome, Developmental Delay, Shingles, Blood Transfusions, Blood Transfusion Reaction, Anesthesia Reactions, Organ Transplant, Chemotherapy, Radiation Therapy, Hyperbaric Therapy, MRSA, VRSA, Vancomycin-Resistant Enterococci, Human Immunodeficiency Virus (HIV), Measles, Mumps, Rubella ([place]an Measles), Pertussis, Clostridium Difficile, Breast Cancer, Colorectal Cancer, Lung Cancer, Prostate Cancer or Testicular Cancer Family History FAMILY HISTORY: Positive Family Cancer, Family Surgery and Family Anesthesia Reaction; Negative Family Psychiatric Problems, Family Respiratory Disorders, Family Cardiac Disorders or Family Gastrointestinal Problems Surgical History SURGICAL: Negative Organ Transplant Social History SMOKING STATUS: Never smoker SECOND HAND EXPOSURE: No SUBSTANCE USE: does not use ED Exam General Limitations: Present no limitations General appearance: Present alert and in no apparent distress Head Head exam: Present atraumatic Eye Eye exam: Present normal appearance, PERRL and EOMI ENT ENT exam: Present normal exam, normal oropharynx and mucous membranes moist Neck Neck exam: Present normal inspection, full ROM and trachea midline Chest Chest inspection: Present normal inspection and symmetric chest wall rise Respiratory Respiratory exam: Present normal lung sounds bilaterally Cardiovascular Cardiovascular exam: Present regular rate, normal rhythm and normal heart sounds Abdominal Exam Abdominal exam: Present soft and normal bowel sounds Extremities Exam Extremities exam: Present full ROM Expanded Lower Extremity Exam Hip/Pelvis exam: Present full ROM (L), tenderness and swelling Upper leg exam: Present full ROM, tenderness and swelling Knee exam: Present full ROM, tenderness and swelling Lower leg exam: Present full ROM, tenderness and swelling Ankle exam: Present full ROM, tenderness and swelling Foot/toe exam: Present full ROM, tenderness and swelling Back Exam Back exam: Present normal inspection and full ROM Neurological Exam Neurological exam: Present alert, oriented X3 and CN II-XII intact Psychiatric Psychiatric exam: Present normal affect and normal mood Skin Skin exam: Present warm, dry, intact and normal color Course Quality Measures none Orders Category Date Time Status CT Screening NOW Care 11/17/24 02:37 Completed Insert IV NOW Care 11/17/24 02:[address] angio LE LT Stat Exams 11/17/24 02:[address] knee LT wo con Stat Exams 11/17/24 00:21 Completed US arterial duplex LE LT Stat Exams 11/16/24 22:52 Completed US venous doppler LE LT Stat Exams 11/16/24 22:52 Completed CBC Stat Lab 11/16/24 23:03 Completed CMP [Comprehensive Metabolic Panel] Stat Lab 11/16/24 23:03 Completed CRP [C-Reactive Protein] Stat Lab 11/17/24 02:30 Completed Creatine Kinase Stat Lab 11/17/24 03:51 Completed ESR [Sed Rate (ESR)] Stat Lab 11/17/24 02:30 Completed INR [Prothrombin Time with INR] Stat Lab 11/16/24 23:03 Completed Lactate (Lactic Acid) Stat Lab 11/17/24 03:51 Completed PTT [Partial Thromboplastin Time] Stat Lab 11/16/24 23:03 Completed Heparin Inj Med 11/17/24 05:35 Discontinued 7,600 unit IV X1 ONE Heparin/D5w 25K 250 ML Ivpb [Heparin in D5w Ivpb] Med 11/17/24 05:45 Discontinued 25,000 unit in 250 ml IV 18 units/kg/hr Vital Signs Vital signs: Vital Signs Temperature 98.4 F 11/16/24 22:36 Pulse Rate 88 11/16/24 22:36 Respiratory Rate 20 11/16/24 22:36 Blood Pressure 131/78 H 11/16/24 22:36 Pulse Oximetry (%) 97 11/16/24 22:36 Oxygen Delivery Method Room Air 11/16/24 22:36 O2 at 97% on RA and WNLs Extremity Problem MDM Narrative MDM Narrative:: 49M with 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 Physical exam reveals LLE swelling and some tenderness. Toe ROM intact. Ankles/feet swelling so distal pulses no easily felt. Skin is warm. Cap refill is present. Patient states he can't usually feel his feet. Patient is afebrile, calm, and alert. No leukocytosis. CMP unremarkable except for Cr of 1.9, which is around baseline. US DVT neg. US arterial suggests possible occlusion. ESR/CRP grossly normal suggesting no infectious process. Telerad CTA reveals likely several arterial occlusion in LLE. Care signed out to Dr. Scott pending vascular consult and dispo. Patient eventually found to have arterial occlusion but with collateral flow present. Vascular was consulted and patient was discharged with outpatient follow-up. 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) How is presenting disease/condition affected by chronic disease/condition?: exacerbated by Evaluation data The following diagnostics were reviewed and interpreted by me:: lab results and radiology exam(s) Lab and/or radiology exams considered but not ordered:: ordered Interpretation Summary: above Medications / Prescriptions Medications or Prescriptions considered but not ordered:: ordered Medication administrations:: Medication Administration History Discontinued Medications Heparin Sodium (Porcine) (Heparin Sod Inj 5000 Unit/Ml Vial) 7,600 unit 80 unit/kg (7600 unit) IV X1 ONE; Protocol Stop: 11/17/24 05:36 Last Admin: 11/17/24 09:32 Dose: Not Given Documented By: HIRA Non-Admin Reason: Cancelled by Provider Heparin Sodium/Dextrose (Heparin In D5w Ivpb) 25,000 unit in 250 mls @ 17.146 mls/hr IV .[id number] [facility]; Protocol Stop: 12/01/24 05:44 Last Admin: 11/17/24 09:33 Dose: Not Given Documented By: VG Non-Admin Reason: Cancelled by Provider above Consultations Consultation(s) initiated? (list below): Yes Diagnosis Extremity Problem Differential Diagnosis: herpes zoster, gout, cellulitis, superficial thrombophlebitis, deep venous thrombosis of upper extremity, lower extremity edema, deep vein thrombosis of lower extremity and other (arterial occlusion, PAD) Most likely diagnosis given after review of the tests above:: PAD Admission Indicated Admission indicated?: not indicated Admission Request Was there a request for admission?: No Disposition Plan Disposition Plan: Discharge Discharge Attestation Discharge Attestation: The patient and all family members were given an opportunity to ask questions and understood the discharge instructions. Discharge instructions specifically effects, indications for sooner follow up or return to the emergency department, and the expected course of current diagnosis. Patient condition: Stable Discharge Plan Plan Patient Disposition: HOME (Self Care) Prescriptions/Referrals Prescriptions/Med Rec: No Action tamsulosin 0.4 mg capsule 0.4 mg PO DAILY Patient Comments: TAKE 1 CAPSULE BY MOUTH TWICE A DAY FOR 30 DAYS fluticasone propion-salmeterol [Advair Diskus] 500-50 mcg/dose blister with device 2 inh INHALATION DAILY Patient Comments: INHALE 1 DOSE BY MOUTH TWICE DAILY. RINSE MOUTH AFTER USE FOR 30 DAYS insulin degludec [Tresiba FlexTouch U-200] 200 unit/mL (3 mL) insulin pen 15 unit SUBCUT BID Patient Comments: INJECT 50 UNITS SUBCUTANEOUSLY TWICE A DAY (DME) pen needle, diabetic 33 gauge x 1/4 needle See Rx Instructions .Route Qty: 100 0RF Rx Instructions: As directed (DME) insulin syringe-needle U-100 0.3 mL 31 x 1/2 syringe See Rx Instructions .Route Qty: 100 0RF Rx Instructions: As directed (DME) blood-glucose meter Kit See Rx Instructions .Route Qty: 1 0RF Rx Instructions: As directed (DME) FreeStyle Suzanne 2 [place] Misc See Rx Instructions .Route Qty: 1 0RF Rx Instructions: As directed (DME) FreeStyle Suzanne 2 Sensor Kit See Rx Instructions .Route Qty: 1 0RF Rx Instructions: As directed gabapentin 300 mg Capsule 300 mg PO TID insulin aspart U-100 [Novolog FlexPen U-100 Insulin] 100 unit/mL (3 mL) Insulin Pen 1 sliding scale dose SUBCUT USEASDIRECTD atorvastatin [Lipitor] 40 mg tablet 40 mg PO DAILY Patient Comments: TAKE 1 TABLET BY MOUTH EVERY DAY FOR 90 DAYS Jardiance 25 mg tablet 25 mg PO DAILY Rybelsus 14 mg tablet 14 mg PO DAILY Patient Comments: TAKE 1 TABLET DAILY AT LEAST 30 MINUTES BEFORE 1ST FOOD, BEVERAGE, OR OTHER ORAL MEDICINE OF DAY Referrals: Robert Son MD [Primary Care Provider] - In 1 week Problem List Clinical Impression: Acute pain of left knee, Leg edema, left, Bilateral edema of lower extremity, Arteriosclerotic vascular disease, Diabetes, Peripheral arterial disease Patient/Caregiver Discharge Instructions Additional Instructions: As we discussed follow-up with your primary care doctor get referred to vascular surgeon to evaluate the peripheral arterial disease that was found on the CTA or CAT scan of your legs. There was no evidence of a deep venous thrombosis or DVT today. You do have swelling of your legs may be worse on the left and be martinez when you are having your legs down for prolonged periods of time to use compression stockings. Consult your doctor and vascular surgeon on this for future advisement. If you are getting worse or your foot becomes cold with severe pain then return for reevaluation. Print Language: Israeli Stand Alone Forms: Patient Portal Info Letter
[2024-11-17 03:55] LABS: Lactate (Lactic Acid) 1.8 mMol/L (0.4-2.0)
[2024-11-17 04:23] LABS: Creatine Kinase 232 U/L (34-171)
--- NOTE | 2024-11-17 05:25 | PRELIM_ITS ---
CT angiogram of the left lower extremity with intravenous contrast (axial sections with sagittal and coronal reformats); November 17, 2024 at 0336 hours Clinical History: Decreased flow on US; rule out arterial occlusion. Comparison: No prior study is available for comparison. Findings: The urinary bladder is prominently distended. There is atherosclerotic calcification of the aorta without aneurysm or dissection. There is subcutaneous edema in the bilateral feet. The right common, internal and external iliac arteries, common femoral, superficial and profundus popliteal, anterior and posterior tibial and peroneal arteries are patent. Dorsalis pedis artery is not visualized. The left common, internal and external iliac, common femoral, superficial and profundofemoral, popliteal, anterior tibial and peroneal arteries are patent. Posterior tibial and lateral dorsalis pedis arteries are not visualized. Impression: Probable occlusion of the left posterior tibial artery lateral dorsalis pedis arteries. Nonspecific edema/inflammation in bilateral feet. Distended urinary bladder. Discussion Details: Results verbally communicated to : Dr. Lim at 05:08 AM 11/17/2024 Report Electronically Signed By: Casey Huddleston 11/17/2024 5:24:22 AM [EST]
[2024-11-17 06:06] VITALS: BP 153/84; PULSE 76; RESP 16; TEMP 36.4; O2SAT 99
--- NOTE | 2024-11-17 06:22 | PC.NURSE ---
Did not start heparin drip or bolus, Per Dr Scott hold off for now
--- NOTE | 2024-11-17 06:34 | PD.EDADULT ---
ED General RME/HPI General Chief complaint: Extremity Problem,Nontraumatic Stated complaint: LEFT BEHIND KNEE AND LOWER LEG PAIN AND SWELLING Time Seen by Provider: 11/16/24 22:51 Arrival date/time: 11/16/24 21:26 Limitations: no limitations RME / HPI RME / HPI narrative: DR. SCOTT MAIN ED EVALUATION: 0600: Care assumed from Darryl Lim. Past medical, surgical, social and family history reviewed. Vitals and home medications reviewed. I will assume the care of the patient at this time. Please refer to the emergency department record for history and examination from initial visit.? 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 He denies any recent falls or trauma. Reports chronic bilateral lower extremity pain. Related Data Home Medications ?Medication ?Instructions ?Recorded ?Confirmed gabapentin 300 mg capsule 300 mg PO TID 06/27/22 12/26/23 insulin aspart U-100 100 unit/mL 1 sliding scale dose subcut 06/27/22 12/26/23 (3 mL) subcutaneous pen (Novolog USEASDIRECTD FlexPen U-100 Insulin aspart) atorvastatin 40 mg tablet (Lipitor) 40 mg PO DAILY 05/13/23 12/26/23 empagliflozin 25 mg tablet 25 mg PO DAILY 05/13/23 12/26/23 (Jardiance) semaglutide 14 mg tablet (Rybelsus) 14 mg PO DAILY 05/13/23 12/26/23 fluticasone 500 mcg-salmeterol 50 2 inh inhalation DAILY 07/19/23 12/26/23 mcg/dose blistr powdr for inhalation (Advair Diskus) insulin degludec 200 unit/mL (3 15 unit subcut BID 07/19/23 12/26/23 mL) subcutaneous pen (Tresiba FlexTouch U-200 insulin) tamsulosin 0.4 mg capsule 0.4 mg PO DAILY 07/19/23 12/26/23 Previous Rx's ?Medication ?Instructions ?Recorded blood-glucose meter #1 ea 11/24/23 flash glucose scanning reader #1 ea 11/24/23 (FreeStyle Suzanne 2 Five Points) flash glucose sensor (FreeStyle #1 ea 11/24/23 Suzanne 2 Sensor kit) insulin syringe-needle U-100 0.3 #100 11/24/23 mL 31 x 1/2 pen needle, diabetic 33 gauge x #100 ea 11/24/23 1/4 Allergies Allergy/AdvReac Type Severity Reaction Status Date / Time Penicillins Allergy Severe Mouth Verified 11/16/24 21:27 blisters/throat Review of Systems Review of Systems Systems Reviewed: All systems reviewed, normal except as documented Past Medical History Past Medical History NEUROLOGIC: Positive Meningitis, Peripheral Neuropathy and Migraine; Negative Neurological Disorders or Seizures CARDIAC: Positive Cardiac Disorders, Hypercholesterolemia and Edema; Negative Cardiac Arrhythmia, Atrial Fibrillation, Angina, Coronary Artery Disease, Atherosclerotic Heart Disease, Aneurysm, Congestive Heart Failure, Deep Vein Thrombosis or Hypertension RESPIRATORY: Positive Pulmonary Embolism; Negative Chronic Obstructive Pulmonary Disease (COPD) or Asthma GENITOURINARY: Positive Genitourinary Disorders MUSCULOSKELETAL: Positive Arthritis, Degenerative Disk Disease and Gout ENDOCRINE: Positive Diabetes Mellitus Type 2; Negative Endocrine Disorders or Diabetes Mellitus Type 1 HEMATOLOGIC: Negative Blood Disorders or Sickle Cell Disease PSYCHO/SOCIAL: Negative Depression or Anxiety OTHER HISTORY: Positive Hospitalization, Falls and Chicken Pox; Negative Autoimmune Disease, Down Syndrome, Developmental Delay, Shingles, Blood Transfusions, Blood Transfusion Reaction, Anesthesia Reactions, Organ Transplant, Chemotherapy, Radiation Therapy, Hyperbaric Therapy, MRSA, VRSA, Vancomycin-Resistant Enterococci, Human Immunodeficiency Virus (HIV), Measles, Mumps, Rubella (Serbian Measles), Pertussis, Clostridium Difficile or Lung Cancer Family History FAMILY HISTORY: Positive Family Cancer, Family Surgery and Family Anesthesia Reaction; Negative Family Psychiatric Problems, Family Respiratory Disorders, Family Cardiac Disorders or Family Gastrointestinal Problems Surgical History SURGICAL: Negative Organ Transplant Social History SMOKING STATUS: Never smoker SECOND HAND EXPOSURE: No SUBSTANCE USE: does not use ED Exam Narrative Physical exam: Physical Exam: General: The vital signs were reviewed. The patient is non-toxic, in no apparent distress and appears healthy with a patent airway, no respiratory distress and has no apparent circulatory problems. Head & Scalp: Normocephalic, atraumatic. Face: Appears normal and is without lesions, deformity. Ears: Left external pinna appears normal. Right external pinna appears normal. Eyes: The sclera is anicteric. No obvious photophobia. The Left and Right Orbit/Lid/Conjunctiva appears normal without swelling, discoloration or injection. Nose: The nose is without deformity, discharge or tenderness; Throat: Appears normal. The mucous membranes are pink and moist without exudates, redness or mass seen. The tongue appears normal. Neck: The neck is supple and no apparent mass or adenopathy. Chest: Well-healed sternotomy scar otherwise the chest wall is normal in size and symmetry and has no chest wall tenderness or crepitus. The patient displays normal ventilator effort without retractions, accessory muscle use and has adequate air movement bilaterally with no wheezes and no rales. Cardiovascular: Regular rate and rhythm; No murmurs, rubs, or gallops; Gastrointestinal: The abdomen appears normal. No obvious hernias or mass. The abdomen is soft and benign, non-distended, with no pain, no guarding and no rebound tenderness. Bowel sounds are present and normal sounding. No CVA tenderness. Genitourinary: Back/Spine: Nontender Extremities/Musculoskeletal/lymphatic: The bilateral upper and lower extremities are warm. The left leg seems to be slightly cooler than the right but there is no pain no gangrene obvious warmth to bilateral feet, there are chronic hyperpigmentary changes on both legs on the anterior shins but no cellulitis appear to have some superficial injuries at various spots along the bilateral legs There is no evidence of arterial insufficiency. There is 1-2+ bilateral pitting edema patient complains of more discomfort in the left knee area than the right. The patient spontaneously moves bilateral upper and lower extremities with no pain and no limitation of movement. There is no significant apparent, injury or trauma. Skin: The skin is warm, dry and intact. No rashes. No petechia. No purpura. No abnormal bruising. The color is appropriate with no cyanosis. Mental status/Psychiatric: Mental status is appropriate for age. The patient has no apparent delusions, visual hallucinations, no apparent audible hallucinations. The patient has no apparent suicidal thoughts/ideation and no apparent homicidal thoughts/ideation. Neurological: The patient is awake, alert, interactive, cordial, cooperative and is oriented to name and situation. The patient follows commands and answers historical question with no impairment. There is no visual disturbance apparent. The pupils are equal and reactive bilaterally with normal eye movements and no diplopia The bilateral upper and lower extremities have normal strength, normal range of motion and normal functioning. The gait, station and balance appear to be baseline with no acute change General Limitations: Present no limitations General appearance: Present alert and in no apparent distress Course Quality Measures none Orders Category Date Time Status CT Screening NOW Care 11/17/24 02:37 Completed Insert IV NOW Care 11/17/24 02:[address] angio LE LT Stat Exams 11/17/24 02:[address] knee LT wo con Stat Exams 11/17/24 00:21 Completed US arterial duplex LE LT Stat Exams 11/16/24 22:52 Completed US venous doppler LE LT Stat Exams 11/16/24 22:52 Completed CBC Stat Lab 11/16/24 23:03 Completed CMP [Comprehensive Metabolic Panel] Stat Lab 11/16/24 23:03 Completed CRP [C-Reactive Protein] Stat Lab 11/17/24 02:30 Completed Creatine Kinase Stat Lab 11/17/24 03:51 Completed ESR [Sed Rate (ESR)] Stat Lab 11/17/24 02:30 Completed INR [Prothrombin Time with INR] Stat Lab 11/16/24 23:03 Completed Lactate (Lactic Acid) Stat Lab 11/17/24 03:51 Completed PTT [Partial Thromboplastin Time] Stat Lab 11/16/24 23:03 Completed Heparin Inj Med 11/17/24 05:35 Discontinued 7,600 unit IV X1 ONE Heparin/D5w 25K 250 ML Ivpb [Heparin in D5w Ivpb] Med 11/17/24 05:45 Discontinued 25,000 unit in 250 ml IV 18 units/kg/hr Vital Signs Vital signs: Vital Signs Temperature 98.4 F 11/16/24 22:36 Pulse Rate 88 11/16/24 22:36 Respiratory Rate 20 11/16/24 22:36 Blood Pressure 131/78 H 11/16/24 22:36 Pulse Oximetry (%) 97 11/16/24 22:36 Oxygen Delivery Method Room Air 11/16/24 22:36 Discharge Plan Plan Patient Disposition: HOME (Self Care) Prescriptions/Referrals Prescriptions/Med Rec: No Action tamsulosin 0.4 mg capsule 0.4 mg PO DAILY Patient Comments: TAKE 1 CAPSULE BY MOUTH TWICE A DAY FOR 30 DAYS fluticasone propion-salmeterol [Advair Diskus] 500-50 mcg/dose blister with device 2 inh INHALATION DAILY Patient Comments: INHALE 1 DOSE BY MOUTH TWICE DAILY. RINSE MOUTH AFTER USE FOR 30 DAYS insulin degludec [Tresiba FlexTouch U-200] 200 unit/mL (3 mL) insulin pen 15 unit SUBCUT BID Patient Comments: INJECT 50 UNITS SUBCUTANEOUSLY TWICE A DAY (DME) pen needle, diabetic 33 gauge x 1/4 needle See Rx Instructions .Route Qty: 100 0RF Rx Instructions: As directed (DME) insulin syringe-needle U-100 0.3 mL 31 x 1/2 syringe See Rx Instructions .Route Qty: 100 0RF Rx Instructions: As directed (DME) blood-glucose meter Kit See Rx Instructions .Route Qty: 1 0RF Rx Instructions: As directed (DME) FreeStyle Suzanne 2 Five Points Misc See Rx Instructions .Route Qty: 1 0RF Rx Instructions: As directed (DME) FreeStyle Suzanne 2 Sensor Kit See Rx Instructions .Route Qty: 1 0RF Rx Instructions: As directed gabapentin 300 mg Capsule 300 mg PO TID insulin aspart U-100 [Novolog FlexPen U-100 Insulin] 100 unit/mL (3 mL) Insulin Pen 1 sliding scale dose SUBCUT USEASDIRECTD atorvastatin [Lipitor] 40 mg tablet 40 mg PO DAILY Patient Comments: TAKE 1 TABLET BY MOUTH EVERY DAY FOR 90 DAYS Jardiance 25 mg tablet 25 mg PO DAILY Rybelsus 14 mg tablet 14 mg PO DAILY Patient Comments: TAKE 1 TABLET DAILY AT LEAST 30 MINUTES BEFORE 1ST FOOD, BEVERAGE, OR OTHER ORAL MEDICINE OF DAY Referrals: Robert Son MD [Primary Care Provider] - In 1 week Problem List Clinical Impression: Acute pain of left knee, Leg edema, left, Bilateral edema of lower extremity, Arteriosclerotic vascular disease, Diabetes, Peripheral arterial disease Patient/Caregiver Discharge Instructions Additional Instructions: As we discussed follow-up with your primary care doctor get referred to vascular surgeon to evaluate the peripheral arterial disease that was found on the CTA or CAT scan of your legs. There was no evidence of a deep venous thrombosis or DVT today. You do have swelling of your legs may be worse on the left and be martinez when you are having your legs down for prolonged periods of time to use compression stockings. Consult your doctor and vascular surgeon on this for future advisement. If you are getting worse or your foot becomes cold with severe pain then return for reevaluation. Print Language: Arabic Stand Alone Forms: Patient Portal Info Letter MDM Narrative MDM hospital course: Patient was signed out to me by the physician executive marketing assistant at 0600 hrs. as someone with a possible arterial occlusion. Patient has no obvious acute occlusive arterial embolus or ischemia bilateral feet are warm with a slight decrease on the left and is complaining of tenderness in his knee area and he states he was driving for 5 hours doing overwork earlier this week. States he has got a history of DVTs but was never put on blood thinners because he was later told it was superficial. He is got no previous angiogram of that extremity. the medical imaging of this patient started with an plain x-ray of the knee which reveals no fracture dislocation or foreign body being seen. There is a questionable knee effusion reported on the x-ray. Venous Doppler study of the left leg reveals no evidence of DVT. A left lower extremity arterial Doppler study reveals moderate atheromatous changes in the left lower extremity because of that evidently a CTA of the lower extremity was done which reveals probable occlusion of the left posterior tibial artery lateral dorsalis pedis arteries as they were poorly visualized. Clinically patient does not have an acute thrombus or acute arterial occlusion to the lower extremity as he has no evidence of a cold foot severe pain but clearly has some vascular disease as there is diminished flow on both the ultrasound and poor visualization on the CTA This was signed out to me is someone that was about to get heparin for an acute arterial occlusion. This was canceled at 0630 hrs. and an attempt to get a consult with our vascular consultants who are at another hospital but usually on-call. Dr. Abrams vascular surgeon on-call called back we discussed the case know this patient has no evidence of acute arterial ischemia as his foot is still warm. He agree will review the overview of the x-rays but this patient can be managed as an outpatient. Dr. Grajeda reviewed the CTA of the leg and reports collateral circulation which clinically is apparent as the leg is warm there is occlusion of the left posterior tibial artery of indeterminate age. Patient has no threat to his limb at this time. Reevaluation of the patient at 0910 hrs. shows the patient to be unchanged he still has a warm bilateral feet. He got some bilateral edema which again is chronic. He is got some areas of superficial trauma to his legs but no cellulitis. And there is no DVT per ultrasound. Patient advised to contact his primary care doctor and get referred to vascular surgeon or go to [facility] as Dr. Hancock the vascular surgeon recommended.. Gracia Menendez am scribing for and in the presence of Dr. Scott. Clinical Information Provided by patient Medical Records Reviewed [facility] Meds/Rx Considered, not Ordered None Labs/Rad/Tests considered, not Ordered None Chronic Illness/Social Conditions Add or document further as needed: diabetes mellitus with peripheral neuropathy, necrotizing fasciitis, and prior DVT/PE (not currently on anticoagulation) EKG EKG not done Lab Interpretation Labs: see narrative above Imaging Imaging interpretation: see narrative above Radiology reports / interpretation(s): Procedure(s): CT angio LE LT Accession Number(s): [id number] cc: Robert Son MD; Chemo Herrera MD; Darryl Lim PA-C~ Examination: CTA abdominal aorta iliofemoral runoff. 2-D sagittal coronal reconstructions. 3-D reconstructions, vascular Date and time: November 17, 2024, 0336 hours INDICATIONS: Left lower extremity swelling and pain after long road trip 3 hours ago Technique: Multiple CTA images of the abdominal aorta iliofemoral runoff arterial vessels, 2.0 mm slice thickness, post intravenous administration 60 cc Isovue 300 2-D sagittal coronal reconstructions. 3-D reconstructions, vascular 3-D postprocessing, including vascular maximum intensity projection images, 3-D volume rendering Low dose protocols were performed. One or more of the following dose reduction techniques were used; automated exposure control, adjustment of the mA and/or KV according to patient size, use of iterative reconstruction technique. Findings: Negative for aneurysmal dilatation abdominal aorta Moderate calcification abdominal aorta Distended urinary bladder Transverse prostate dimension 4.9 cm Common iliac internal iliac and external iliac and common femoral arteries intact Right superficial femoral artery intact as well as right popliteal artery Right anterior tibial and posterior tibial and main continuation trunks fill to the ankle with filling of the dorsalis pedis artery Left superficial femoral artery fills with no significant stenoses Left popliteal artery and tacked There is filling of the left anterior tibial and main continuation trunk There is occlusion of the left posterior tibial artery Collateral arterial filling is evident of the dorsalis pedis artery There is edema in the subcutaneous fatty tissues surrounding the lower leg on the left and ankle more prominent compared to the right IMPRESSION: 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 2-D sagittal reconstructions. 2-D coronal reconstructions. 3-D reconstructions. Date and time of exam:November 17, 2024, 0114 hours INDICATIONS: Patient fell today with injury to the knee, knee pain CTDI: vol (mGy):10.31 DLP: (mGycm):383 Technique: Multiple 1.25 mm axial sections of the left knee without intravenous contrast have been obtained. 2-D sagittal and coronal reconstructions have been obtained. 3-D reconstructions have been obtained. Low dose protocols were performed. One or more of the following dose reduction techniques were used; automated exposure control, adjustment of the mA and/or KV according to patient size, use of iterative reconstruction technique. Findings: Distal femur femoral condyles intact Widening of the medial patellofemoral joint space Patellae intact Tibial plateau proximal tibia, fibular head and neck intact Meniscus calcification Moderate knee effusion Quadriceps patellar tendons appear intact IMPRESSION: No acute fracture Moderate knee effusion Widening of the medial patellofemoral joint space which may relate to prior patellar dislocation MRI knee without contrast follow-up would best assess for tear of the medial patellar retinaculum Dictated By: Chemo Herrera MD Procedure(s): US venous doppler RE KIRAN Accession Number(s): [id number] cc: Robert Son MD; Chemo Herrera MD; Darryl Lim PA-C~ Examination: Duplex scan of the lower extremity, unilateral left Date and time of exam: November 16, 2024 11:35 PM INDICATIONS: Left leg swelling and pain several days Technique: Duplex scan of the extremity veins using B-mode/grayscale imaging and Doppler spectral analysis and color flow Attention is directed to internal echogenicity, compression and augmentation involving these veins, color flow assessment, spectral analysis Findings: Major deep venous structures in the extremity demonstrate normal course and caliber. There is no evidence of deep vein thrombosis. Normal color flow and spectral analysis Impression: Negative for DVT.. Dictated By: Chemo Herrera MD Procedure(s): US arterial duplex LE LT Accession Number(s): [id number] cc: Robert Son MD; Chemo Herrera MD; Darryl Lim PA-C~ Examination: Arterial duplex lower extremity study, unilateral left Date and time of exam: November 16, 2024 at 1142 hours INDICATIONS: Left leg swelling and pain beginning several days ago Findings: Duplex sonographic imaging of the lower extremity arteries using B-mode/Keith scale imaging and Doppler spectral analysis and color flow. Ankle brachial indices have been recorded. Left common femoral artery demonstrates triphasic flow. Left superficial femoral artery demonstrates triphasic flow. Left popliteal artery demonstrates triphasic flow. Left posterior tibial artery demonstrated monophasic flow. Left ankle/brachial index is 1.1. Impression: Abnormal study, monophasic and markedly reduced flow in the left posterior tibial artery, please see the CTA lower extremity runoff study this morning Dictated By: Chemo Herrera MD Medication Administration(s) Medication Administration History Discontinued Medications Heparin Sodium (Porcine) (Heparin Sod Inj 5000 Unit/Ml Vial) 7,600 unit 80 unit/kg (7600 unit) IV X1 ONE; Protocol Stop: 11/17/24 05:36 Last Admin: 11/17/24 09:32 Dose: Not Given Documented By: VG Non-Admin Reason: Cancelled by Provider Heparin Sodium/Dextrose (Heparin In D5w Ivpb) 25,000 unit in 250 mls @ 17.146 mls/hr IV .[id number] [facility]; Protocol Stop: 12/01/24 05:44 Last Admin: 11/17/24 09:33 Dose: Not Given Documented By: VG Non-Admin Reason: Cancelled by Provider Consultations/Discussions re: Management Consult #1: Date/time: 11/17/24 at 0825 hours Physician, specialty, service, details: Discussed radiology results with Dr. Herrera. Diagnosis Differential diagnosis: recurrent deep vein thrombosis, cellulitis, venous insufficiency Most likely dx, and/or detailed dx discussion: Acute pain of left knee Leg edema, left Bilateral edema of lower extremity Arteriosclerotic vascular disease Diabetes Peripheral arterial disease Dispositon Disposition: Discharge Home
--- NOTE | 2024-11-17 07:20 | PC.NURSE ---
In to assess pt. Pt resting quietly at this time without any complaints. Call light placed within reach. Plan of care ongoing.
[2024-11-17 08:11] VITALS: BP 162/97; PULSE 90; RESP 15; TEMP 36.6; O2SAT 98
== END 2024-11-17 09:35 | disposition home or self-care (01) ==
PROVIDERS: Physician Assistant; Emergency Provider Emergency Medicine; PCP Family Medicine
DX: E11.51 Type 2 diabetes mellitus with diabetic peripheral angiopathy without gangrene (principal); I70.202 Unspecified atherosclerosis of native arteries of extremities, left leg; M25.462 Effusion, left knee; M79.89 Other specified soft tissue disorders; M79.662 Pain in left lower leg; Z79.84 Long term (current) use of oral hypoglycemic drugs; Z79.4 Long term (current) use of insulin; Z79.85 Long-term (current) use of injectable non-insulin antidiabetic drugs
CPT/HCPCS: 36415; 73700; 73706; 80053; 82550; 83605; 85025; 85610; 85652; 85730; 86140; 93926; 93971; 99284; A4649; Q9967

== ENCOUNTER 2024-12-07 18:31 | Emergency (ER) | payer MEDICAID, SELFPAY ==
[2024-12-07 18:32] VITALS: BMI 28.5
[2024-12-07 18:50] VITALS: BP 124/86; PULSE 100; RESP 18; TEMP 36.9; O2SAT 98
--- NOTE | 2024-12-07 19:02 | EKG_ITS ---
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
--- NOTE | 2024-12-07 19:02 | XR_ITS ---
Examination: PA chest single view. Technique: Upright PA chest single view. Date and time: December 07, 2024, 1953 hrs. Indication: Covid positive patient with chest pain shortness of breath beginning 3 days ago. Findings: Normal heart size Median sternotomy wires. No pneumonia or pulmonary edema. Moderate osteopenia. Impression: No active disease.
--- NOTE | 2024-12-07 19:03 | EDRME_ITS ---
Rapid Medical Screening Exam [facility] Arrival date/time: 12/07/24 18:31 49M with history of DM w/ peripheral neuropathy and nec fasc and DVT/PE/PAD presents to ED with CP, SOB, and sensation of drowning. Patient tested positive for COVID at home. Patient is on Paxlovid. Chief Complaint: Flu Like Symptoms Vital signs: Vital Signs Temperature 98.5 F 12/07/24 18:50 Pulse Rate 100 12/07/24 18:50 Respiratory Rate 18 12/07/24 18:50 Blood Pressure 124/86 H 12/07/24 18:50 Pulse Oximetry (%) 98 12/07/24 18:50 Oxygen Delivery Method Room Air 12/07/24 18:50
[2024-12-07 19:23] LABS: Lactate (Lactic Acid) 1.5 mMol/L (0.4-2.0)
[2024-12-07 19:24] LABS: Beta Hydroxybutyrate 0.6 mmol/L (<0.6)
[2024-12-07 19:25] LABS: Basophils # (Auto) 0.0 Thou/mm3 (0.0-0.2); Basophils % (Auto) 0 % (0-2.5); Eosinophils # (Auto) 0.1 Thou/mm3 (0.0-0.5); Eosinophils % (Auto) 1 % (0-10); Hematocrit 40.3 % (41.0-53.0); Hemoglobin 14.5 g/dL (13.5-16.0); Immature Granulocytes Auto 0.02 Thou/mm3 (0.00-0.00); Lymphocytes # (Auto) 1.1 Thou/mm3 (1.0-4.8); Lymphocytes % (Auto) 16 % (10-50); Mean Corpuscular HGB Conc 36.0 g/dl (31.0-37.0); Mean Corpuscular Hemoglobin 30.5 pg (25.0-35.0); Mean Corpuscular Volume 85 fL (80-100); Monocytes # (Auto) 0.7 Thou/mm3 (0.0-0.8); Monocytes % (Auto) 10 % (0-12); Neutrophils # (Auto) 5.1 Thou/mm3 (1.8-7.7); Neutrophils % (Auto) 73 % (37-80); Nucleated Red Blood Cell # 0.00 Thou/mm3 (0.00-0.00); Nucleated Red Blood Cell % 0 /100 WBC (0); Platelet Count 127 Thou/mm3 (140-440); RDW Standard Deviation 39.7 fL (35.1-43.9); Red Blood Count 4.76 Miln/mm3 (4.50-5.90); White Blood Count 7.0 Thou/mm3 (3.8-10.6)
[2024-12-07 19:41] LABS: B-Type Natriuretic Peptide 45 pg/mL (0-100)
--- NOTE | 2024-12-07 19:42 | PD.EDURI ---
Upper Respiratory Inf. RME/HPI General Chief Complaint: Flu Like Symptoms Stated Complaint: COVID + NOT EATING FOR 2 DAYS Time Seen by Provider: 12/07/24 19:37 Arrival date/time: 12/07/24 18:31 RME / HPI RME / HPI Narrative: 12/07/24 18:31 49M with history of DM w/ peripheral neuropathy and nec fasc and DVT/PE/PAD presents to ED with CP, SOB, and sensation of drowning. Patient tested positive for COVID at home. Patient is on Paxlovid. DR. IBARRA MAIN ED EVALUATION: 49 y/o male with Hx of HTN, Type II DM, and PE presents to ED c/o cough, congestion, sore throat, and inability to tolerate food due to difficulty swallowing s/p testing positive for COVID-19 at home x 2 days ago. Patient is on Paxlovid. No other concerns or complaint expressed at this this time. Related Data Home Medications ?Medication ?Instructions ?Recorded ?Confirmed gabapentin 300 mg capsule 300 mg PO TID 06/27/22 12/26/23 insulin aspart U-100 100 unit/mL 1 sliding scale dose subcut 06/27/22 12/26/23 (3 mL) subcutaneous pen (Novolog USEASDIRECTD FlexPen U-100 Insulin aspart) atorvastatin 40 mg tablet (Lipitor) 40 mg PO DAILY 05/13/23 12/26/23 empagliflozin 25 mg tablet 25 mg PO DAILY 05/13/23 12/26/23 (Jardiance) semaglutide 14 mg tablet (Rybelsus) 14 mg PO DAILY 05/13/23 12/26/23 fluticasone 500 mcg-salmeterol 50 2 inh inhalation DAILY 07/19/23 12/26/23 mcg/dose blistr powdr for inhalation (Advair Diskus) insulin degludec 200 unit/mL (3 15 unit subcut BID 07/19/23 12/26/23 mL) subcutaneous pen (Tresiba FlexTouch U-200 insulin) tamsulosin 0.4 mg capsule 0.4 mg PO DAILY 07/19/23 12/26/23 Previous Rx's ?Medication ?Instructions ?Recorded blood-glucose meter #1 ea 11/24/23 flash glucose scanning reader #1 11/24/23 (FreeStyle Suzanne 2 [place]) flash glucose sensor (FreeStyle #1 11/24/23 Suzanne 2 Sensor kit) insulin syringe-needle U-100 0.3 #100 11/24/23 mL 31 x 1/2 pen needle, diabetic 33 gauge x #100 ea 11/24/23 1/4 Allergies Allergy/AdvReac Type Severity Reaction Status Date / Time Penicillins Allergy Severe Mouth Verified 12/07/24 18:35 blisters/throat Review of Systems Review of Systems Systems Reviewed: All systems reviewed, normal except as documented Past Medical History Past Medical History NEUROLOGIC: Positive Meningitis, Peripheral Neuropathy and Migraine CARDIAC: Positive Cardiac Disorders, Hypercholesterolemia and Edema RESPIRATORY: Positive Pulmonary Embolism GASTROINTESTINAL: Positive Ulcer GENITOURINARY: Positive Genitourinary Disorders MUSCULOSKELETAL: Positive Arthritis, Degenerative Disk Disease and Gout ENDOCRINE: Positive Diabetes Mellitus Type 2 OTHER HISTORY: Positive Hospitalization, Falls and Chicken Pox Family History FAMILY HISTORY: Positive Family Cancer, Family Surgery and Family Anesthesia Reaction ED Exam Narrative Physical exam: Generally the patient is alert in no obvious distress, oropharynx is moist and clear, neck shows no stridor, lungs clear to auscultation equal bilaterally, heart regular rate and rhythm, abdomen soft bowel sounds present nondistended nontender, neurologic exam no focal motor or sensory deficits, skin is warm pale and dry without rash, extremities show no edema Course Course Course Narrative: CXR was ordered for determining the etiology of shortness of breath. Quality Measures none Orders Category Date Time Status Blood glucose [Bedside Blood Glucose] NOW Care 12/07/24 18:54 Active EKG (ED ONLY) *Do not use* NOW Care 12/07/24 19:02 Completed EKG (ED Only) Stat Exams 12/07/24 19:02 Draft XR chest 1V portable Stat Exams 12/07/24 19:02 Completed BNP [B-Type Natriuretic Peptide] Stat Lab 12/07/24 19:13 Completed Beta Hydroxybutyrate Stat Lab 12/07/24 19:13 Completed CBC Stat Lab 12/07/24 19:13 Completed Comprehensive Metabolic Panel Stat Lab 12/07/24 19:13 Completed Lactate (Lactic Acid) Stat Lab 12/07/24 19:13 Completed Magnesium Stat Lab 12/07/24 19:13 Completed Procalcitonin Stat Lab 12/07/24 19:13 Completed Troponin I Stat Lab 12/07/24 19:13 Completed Urinalysis, C/S if Indicated Stat Lab 12/07/24 19:25 Completed Sodium Chloride 0.9% 1000 ml [Ns] 1,000 ml Med 12/07/24 19:59 Discontinued IV 999 mls/hr Vital Signs Vital signs: Vital Signs Temperature 98.5 F 12/07/24 18:50 Pulse Rate 100 12/07/24 18:50 Respiratory Rate 18 12/07/24 18:50 Blood Pressure 124/86 H 12/07/24 18:50 Pulse Oximetry (%) 98 12/07/24 18:50 Oxygen Delivery Method Room Air 12/07/24 18:50 Upper Respiratory Infection MDM Narrative MDM Narrative:: Scribe Attestation: Gloria Menendez, am scribing for and in the presence of Dr. Ibarra. Provider Notation: Although this document has been carefully reviewed, there may still be some phonetic and other typographical errors. These errors are purely grammatical due to imperfections in the software program and should not be construed in any way to? compromise the substance of the patient's medical care during this visit. Patient's blood sugars 320. CO2 of electrolytes is 17.5. Anion gap is not elevated at 15. Beta hydroxybutyrate is top end of normal at 0.6. I interpreted all labs. I do not believe this patient to be in diabetic ketoacidosis. Patient was hydrated with a liter normal saline. His COVID test at home today was positive. Patient is already on Paxlovid. He is to continue the Paxlovid. Tylenol and ibuprofen for fever and pain. Chest x-ray showed no infiltrate. All vital signs were stable. EKG is nonischemic. It did show tachycardia at a rate of 114 which at the time of discharge heart rate is down into the 90s. Differential diagnosis: Diabetic ketoacidosis, viral syndrome, flu, COVID Patient data External records reviewed:: [facility] previous records (Reviewed prior ED records from 11/17/24. Patient was seen for Acute pain of left knee.) Clinical information provided by:: patient Social determinants that could affect healthcare access:: none Patient has the following chronic illnesses:: Peripheral Neuropathy, Migraine, Hypercholesterolemia, Edema, Pulmonary Embolism, Ulcer, Arthritis, Degenerative Disk Disease, Gout, Diabetes Mellitus Type 2 How is presenting disease/condition affected by chronic disease/condition?: exacerbated by Evaluation data The following diagnostics were reviewed and interpreted by me:: lab results, radiology exam(s) and EKG tracing(s) Lab and/or radiology exams considered but not ordered:: None Interpretation Summary: RADIOLOGY Chest X-Ray: Findings: Normal heart size Median sternotomy wires. No pneumonia or pulmonary edema. Moderate osteopenia. Impression: No active disease. Medications / Prescriptions Medications or Prescriptions considered but not ordered:: None Medication administrations:: Medication Administration History Discontinued Medications Sodium Chloride (Ns) 1,000 mls @ 999 mls/hr IV .Q1H1M ONE Stop: 12/07/24 20:59 Last Admin: 12/07/24 20:00 Dose: 999 mls/hr Documented By: DT See above if any. Consultations Consultation(s) initiated? (list below): No Diagnosis Upper Respiratory Differential Diagnosis: upper respiratory infection, sinusitis, viral infection, bronchitis, influenza, pharyngitis and other (COVID-19, LRI) Most likely diagnosis given after review of the tests above:: None Admission Indicated Admission indicated?: not indicated Explain why admission is indicated or not indicated:: Patient does not meet admission criteria. Admission Request Was there a request for admission?: No Disposition Plan Disposition Plan: Discharge Discharge Attestation Discharge Attestation: The patient and all family members were given an opportunity to ask questions and understood the discharge instructions. Discharge instructions specifically effects, indications for sooner follow up or return to the emergency department, and the expected course of current diagnosis. Patient condition: Stable Discharge Plan Plan Patient Disposition: HOME (Self Care) Prescriptions/Referrals Prescriptions/Med Rec: No Action tamsulosin 0.4 mg capsule 0.4 mg PO DAILY Patient Comments: TAKE 1 CAPSULE BY MOUTH TWICE A DAY FOR 30 DAYS fluticasone propion-salmeterol [Advair Diskus] 500-50 mcg/dose blister with device 2 inh INHALATION DAILY Patient Comments: INHALE 1 DOSE BY MOUTH TWICE DAILY. RINSE MOUTH AFTER USE FOR 30 DAYS insulin degludec [Tresiba FlexTouch U-200] 200 unit/mL (3 mL) insulin pen 15 unit SUBCUT BID Patient Comments: INJECT 50 UNITS SUBCUTANEOUSLY TWICE A DAY (DME) pen needle, diabetic 33 gauge x 1/4 needle See Rx Instructions .Route Qty: 100 0RF Rx Instructions: As directed (DME) insulin syringe-needle U-100 0.3 mL 31 x 1/2 syringe See Rx Instructions .Route Qty: 100 0RF Rx Instructions: As directed (DME) blood-glucose meter Kit See Rx Instructions .Route Qty: 1 0RF Rx Instructions: As directed (DME) FreeStyle Suzanne 2 [place] Misc See Rx Instructions .Route Qty: 1 0RF Rx Instructions: As directed (DME) FreeStyle Suzanne 2 Sensor Kit See Rx Instructions .Route Qty: 1 0RF Rx Instructions: As directed gabapentin 300 mg Capsule 300 mg PO TID insulin aspart U-100 [Novolog FlexPen U-100 Insulin] 100 unit/mL (3 mL) Insulin Pen 1 sliding scale dose SUBCUT USEASDIRECTD atorvastatin [Lipitor] 40 mg tablet 40 mg PO DAILY Patient Comments: TAKE 1 TABLET BY MOUTH EVERY DAY FOR 90 DAYS Jardiance 25 mg tablet 25 mg PO DAILY Rybelsus 14 mg tablet 14 mg PO DAILY Patient Comments: TAKE 1 TABLET DAILY AT LEAST 30 MINUTES BEFORE 1ST FOOD, BEVERAGE, OR OTHER ORAL MEDICINE OF DAY Referrals: Karri Adames PA-C [Primary Care Provider] - In 1 week Problem List Clinical Impression: COVID-19 Patient/Caregiver Discharge Instructions Education Materials: COVID-19 Home Care Additional Instructions: Continue current medications. Return to ER if condition worsens such as shortness of breath gets to the point where you cannot even walk to the bathroom. Print Language: Bhutanese Stand Alone Forms: Sari Award Info., Patient Portal Info Letter
[2024-12-07 19:49] LABS: Procalcitonin 0.18 ng/ml (0.0-0.49)
[2024-12-07 19:56] LABS: Collection Type, Urine Clean Catch
[2024-12-07] MEDS: SODIUM CHLORIDE 0.9% 1000 ML 1,000 ML 999 ML IV (20:00)
[2024-12-07 20:14] LABS: Bilirubin,Urine Negative (Negative); Blood,Urine 2+ (Negative); Clarity,Urine Clear (Clear/Hazy); Color,Urine Lt-Yellow (Lt Yel-Yel); Culture Indicated,Urine Not Indicated; Glucose, Urine 4+ (Negative); Granular Casts,Urine < 1 /hpf (0-1); Hyaline Casts,Urine < 1 /hpf (0-1); Ketones,Urine Negative (Negative); Leukocyte Esterase,Urine Negative (Negative); Nitrite,Urine Negative (Negative); PH,Urine 6.0 (5.0-7.0); Protein,Urine 3+ (Neg - Trace); RBC,Urine 7 /hpf (0-3); Specific Gravity,Urine 1.027 (1.001-1.035); Squamous Epithelial Cell,Urine < 1 /hpf (0-5); Urobilinogen,Urine Negative mg/dL (0.0-1.0); WBC,Urine 1 /hpf (0-5)
[2024-12-07 20:16] LABS: Alanine Aminotransferase 8 U/L (10-49); Albumin, Serum 4.3 gm/dL (3.5-5.0); Albumin/Globulin Ratio 1.6 (1.2-2.2); Alkaline Phosphatase 90 U/L (46-116); Anion Gap 15 (7-16); Aspartate Amino Transferase 13 U/L (0-34); BUN/Creatinine Ratio 6 Ratio (12-20); Bilirubin,Total 1.0 mg/dL (0.3-1.2); Blood Urea Nitrogen 14 mg/dL (9-23); Calcium 9.3 mg/dL (8.3-10.6); Calcium (Corrected) 9.3 mg/dL (8.5-10.1); Carbon Dioxide 17.5 mMol/L (20.0-31.0); Chloride 104 mMol/L (98-107); Creatinine (Component) 2.2 mg/dL (0.6-1.3); Estimated Creatinine Clearance 47.6 mL/min (>60); Globulin 2.7 gm/dL (2.3-3.5); Glucose 320 mg/dL (74-106); Magnesium 2.0 mg/dL (1.6-2.6); Osmolality,Calculated 284 (275-295); Potassium 4.2 mMol/L (3.4-5.1); Sodium 136 mMol/L (136-145); Total Protein 7.0 gm/dL (5.7-8.2); Troponin I < 0.020 ng/mL (0.0-0.045); eGFR 35 See Note
[2024-12-07 21:29] VITALS: BP 148/85; PULSE 85; RESP 14; TEMP 37; O2SAT 99
== END 2024-12-07 21:30 | disposition home or self-care (01) ==
PROVIDERS: Physician Assistant; Emergency Provider Emergency Medicine; PCP Physician Assistant Medical
DX: U07.1 COVID-19 (principal); R00.0 Tachycardia, unspecified; E78.00 Pure hypercholesterolemia, unspecified
CPT/HCPCS: 36415; 71045; 80053; 81001; 82010; 83605; 83735; 83880; 84145; 84484; 85025; 93005; 96360; 99283; J7030

== ENCOUNTER 2025-03-26 07:36 | Emergency (ER) | payer MEDICAID, SELFPAY ==
[2025-03-26 07:44] VITALS: BP 126/83; PULSE 113; RESP 20; TEMP 36.6; O2SAT 98
--- NOTE | 2025-03-26 07:56 | XR_ITS ---
Examination: Right elbow 3 views Technique: Elbow AP, oblique, lateral 3 views Exam date and time: March 26, 2025, 0814 hours INDICATIONS: Elbow pain beginning 4 days ago no trauma. FINDINGS: No fracture or dislocation No elbow effusion IMPRESSION: No fracture or significant arthritic change.
--- NOTE | 2025-03-26 07:57 | PD.EDRME ---
Rapid Medical Screening Exam [facility] Arrival date/time: 03/26/25 07:36 50-year-old male with a history of hyperlipidemia, type 2 diabetes, BPH, presents to the emergency room with a chief complaint of a pain behind his right eye x 2 days. Patient denies any trauma or any discharge from the eye. The patient is also complaining of tenderness swelling and warmth to his right elbow x 2 days I have greeted and performed a focused initial assessment of this patient. A comprehensive ED assessment and evaluation of the patient, analysis of all test results, and completion of the medical decision making process will be conducted by additional ED providers. Chief Complaint: Eye Problems Time Seen by Provider: 03/26/25 07:41 Vital signs: Vital Signs Temperature 97.9 F 03/26/25 07:44 Pulse Rate 113 H 03/26/25 07:44 Respiratory Rate 20 03/26/25 07:44 Blood Pressure 126/83 03/26/25 07:44 Pulse Oximetry (%) 98 03/26/25 07:44 Oxygen Delivery Method Room Air 03/26/25 07:44 Vital signs reviewed by provider: Yes Exam: There is no obvious foreign body in the right eye. Conjunctiva is within normal limits no erythema no injection no discharge. Right elbow tenderness, swelling, warmth Clinical Impression: Cellulitis versus septic bursitis versus bursitis
[2025-03-26 08:16] LABS: Lactate (Lactic Acid) 1.3 mMol/L (0.4-2.0)
[2025-03-26 08:19] LABS: Basophils # (Auto) 0.0 Thou/mm3 (0.0-0.2); Basophils % (Auto) 0 % (0-2.5); Eosinophils # (Auto) 0.7 Thou/mm3 (0.0-0.5); Eosinophils % (Auto) 7 % (0-10); Hematocrit 36.8 % (41.0-53.0); Hemoglobin 13.3 g/dL (13.5-16.0); Immature Granulocytes Auto 0.03 Thou/mm3 (0.00-0.00); Lymphocytes # (Auto) 1.5 Thou/mm3 (1.0-4.8); Lymphocytes % (Auto) 17 % (10-50); Mean Corpuscular HGB Conc 36.1 g/dl (31.0-37.0); Mean Corpuscular Hemoglobin 30.4 pg (25.0-35.0); Mean Corpuscular Volume 84 fL (80-100); Monocytes # (Auto) 0.5 Thou/mm3 (0.0-0.8); Monocytes % (Auto) 6 % (0-12); Neutrophils # (Auto) 6.3 Thou/mm3 (1.8-7.7); Neutrophils % (Auto) 70 % (37-80); Nucleated Red Blood Cell # 0.00 Thou/mm3 (0.00-0.00); Nucleated Red Blood Cell % 0 /100 WBC (0); Platelet Count 220 Thou/mm3 (140-440); RDW Standard Deviation 39.4 fL (35.1-43.9); Red Blood Count 4.38 Miln/mm3 (4.50-5.90); White Blood Count 9.0 Thou/mm3 (3.8-10.6)
[2025-03-26] MEDS: KETOROLAC INJ 60 MG/2 ML VIAL 30 MG IM (08:26)
[2025-03-26 08:52] LABS: Alanine Aminotransferase 9 U/L (10-49); Albumin, Serum 4.5 gm/dL (3.5-5.0); Albumin/Globulin Ratio 1.7 (1.2-2.2); Alkaline Phosphatase 103 U/L (46-116); Anion Gap 10 (7-16); Aspartate Amino Transferase < 10 U/L (0-34); BUN/Creatinine Ratio 13 Ratio (12-20); Bilirubin,Total 0.7 mg/dL (0.3-1.2); Blood Urea Nitrogen 30 mg/dL (9-23); Calcium 9.2 mg/dL (8.3-10.6); Calcium (Corrected) 9.2 mg/dL (8.5-10.1); Carbon Dioxide 24.8 mMol/L (20.0-31.0); Chloride 101 mMol/L (98-107); Creatinine (Component) 2.4 mg/dL (0.6-1.3); Globulin 2.6 gm/dL (2.3-3.5); Glucose 398 mg/dL (74-106); Osmolality,Calculated 295 (275-295); Potassium 4.2 mMol/L (3.4-5.1); Procalcitonin 0.14 ng/ml (0.0-0.49); Sodium 136 mMol/L (136-145); Total Protein 7.1 gm/dL (5.7-8.2); eGFR 32 See Note
[2025-03-26 08:52] LABS: Collection Type, Urine Clean Catch
[2025-03-26 09:05] LABS: Bilirubin,Urine Negative (Negative); Blood,Urine 1+ (Negative); Clarity,Urine Clear (Clear/Hazy); Color,Urine Lt-Yellow (Lt Yel-Yel); Glucose, Urine 4+ (Negative); Ketones,Urine Negative (Negative); Leukocyte Esterase,Urine Negative (Negative); Nitrite,Urine Negative (Negative); PH,Urine 6.0 (5.0-7.0); Protein,Urine 2+ (Neg - Trace); RBC,Urine 2 /hpf (0-3); Specific Gravity,Urine 1.021 (1.001-1.035); Squamous Epithelial Cell,Urine < 1 /hpf (0-5); Urobilinogen,Urine Negative mg/dL (0.0-1.0); WBC,Urine 1 /hpf (0-5)
--- NOTE | 2025-03-26 09:31 | EDNOTE_ITS ---
<Statement entered by Sol Dickinson MD - 03/27/25 18:00> I, Sol Dickinson MD, have reviewed the history, exam, and assessment of the patient. I have evaluated the patient independently and agree with the plan of care documented by [ ]. All diagnostic studies were reviewed and discussed. I confirm the diagnosis as documented by the Resident. I was present during the Medical Decision Making for this patient. The patient's plan of care was created between myself and the Resident and consistent with our discussion of the patient's case. ED General RME/HPI General Chief complaint: Eye Problems Stated complaint: SHARP PAIN R) EYE GOING INTO HEAD; PAIN R) ELBOW Time Seen by Provider: 03/26/25 07:41 Arrival date/time: 03/26/25 07:36 RME / HPI RME / HPI narrative: 03/26/25 07:36 50-year-old male with a history of hyperlipidemia, type 2 diabetes, BPH, presents to the emergency room with a chief complaint of a pain behind his right eye x 2 days. Patient denies any trauma or any discharge from the eye. The patient is also complaining of tenderness swelling and warmth to his right elbow x 2 days I have greeted and performed a focused initial assessment of this patient. A comprehensive ED assessment and evaluation of the patient, analysis of all test results, and completion of the medical decision making process will be conducted by additional ED providers. Exam: There is no obvious foreign body in the right eye. Conjunctiva is within normal limits no erythema no injection no discharge. Right elbow tenderness, swelling, warmth Impression: Cellulitis versus septic bursitis versus bursitis Related Data Home Medications ?Medication ?Instructions ?Recorded ?Confirmed gabapentin 300 mg capsule 300 mg PO TID 06/27/2212/25 insulin aspart U-100 100 unit/mL 1 sliding scale dose subcut 06/27/22 12/26/23 (3 mL) subcutaneous pen (Novolog USEASDIRECTD FlexPen U-100 Insulin aspart) atorvastatin 40 mg tablet (Lipitor) 40 mg PO DAILY 06/0412/26/23 empagliflozin 25 mg tablet 25 mg PO DAILY 05/13/23 (Jardiance) semaglutide 14 mg tablet (Rybelsus) 14 mg PO DAILY 06/0412/26/23 fluticasone 500 mcg-salmeterol 50 2 inh inhalation BETO LY 07/19/23 12/26/23 mcg/dose blistr powdr for inhalation (Advair Diskus) insulin degludec 200 unit/mL (3 15 unit subcut BID 01/0212/26/23 mL) subcutaneous pen (Tresiba FlexTouch U-200 insulin) tamsulosin 0.4 mg capsule 0.4 mg PO DAILY 07/19/23 Previous Rx's ?Medication ?Instructions ?Recorded blood-glucose meter #1 ea 11/24/23 flash glucose scanning reader #1 11/24/23 (FreeStyle Suzanne 2 [place]) flash glucose sensor (FreeStyle #1 ea 11/24/23 Suzanne 2 Sensor kit) insulin syringe-needle U-100 0.3 #100 11/24/23 mL 31 x 1/2 pen needle, diabetic 33 gauge x #100 ea 11/24/23 1/4 celecoxib 200 mg capsule (Celebrex) 200 mg PO QDAY 1 w makah #7 caps 03/26/25 fluticasone propionate 50 1 spray intranasal QDAY #16 grams 03/26/25 mcg/actuation nasal spray,suspension (Flonase Allergy Relief) loratadine 10 mg capsule 10 mg PO QDAY 1 week #7 caps 03/26/25 Allergies Allergy/AdvReac Type Severity Reaction Status Date / Time Penicillins Allergy Severe Mouth Verified 03/26/25 07:40 blisters/throat ED Exam Narrative Physical exam: Physical Exam: GENERAL: Awake, answering questions appropriately, appears stated age HEENT: NC/AT. Moist mucosa. PERRLA/EOMI but has some pain with movement of the right eye. Mild erythema noted in the conjunctiva of the right eye without any tearing or exudation. No papilledema noted on ophthalmic examination. Grid testing for macular degeneration showed some wiggling but no disruption group. Slit-lamp testing showed some mild irritation with uptake of dye but otherwise unremarkable. CARDIO: Heart RRR, no obvious murmurs, no JVD. PULM: No coughing or visible SOB. Lungs CTA B/L. GI: Abdomen soft, NT/ND, +BS. SKIN/MSK/EXT: Right olecranon warm without any palpable edema or mass. No wounds/rashes/edema/amputations. +Pedal pulses present B/L. NEURO: Oriented x3, Moves extremities x4, No focal neurologic deficits noted. Course Quality Measures none Orders Category Date Time Status Tonometer to Bedside X1 Care 03/26/25 07:56 Active Gonsales Lamp to Bedside X1 Care 03/26/25 10:12 Active XR elbow comp RT min 3V Stat Exams 03/26/25 07:56 Completed Blood Culture (Lab) Stat Lab 03/26/25 08:07 Received CBC Stat Lab 03/26/25 08:11 Completed CMP [Comprehensive Metabolic Panel] Stat Lab 03/26/25 08:11 Completed Lactate (Lactic Acid) Stat Lab 03/26/25 08:11 Completed Procalcitonin Stat Lab 03/26/25 08:11 Completed UA [Urinalysis] Stat Lab 03/26/25 08:15 Completed Fluorescein Sodium [Bio-Rupinder] Med 03/26/25 10:12 Discontinued 1 mg BOTH EYES X1 ONE Ketorolac Inj [Toradol Inj] Med 03/26/25 07:56 Discontinued 30 mg IM X1 ONE TETRACAINE [place] 0.5% [Pontocaine [place] 0.5%] Med 03/26/25 09:29 Discontinued 1 drop BOTH EYES X1 ONE Vital Signs Vital signs: Vital Signs Temperature 97.9 F 03/26/25 07:44 Pulse Rate 113 H 03/26/25 07:44 Respiratory Rate 20 03/26/25 07:44 Blood Pressure 126/83 03/26/25 07:44 Pulse Oximetry (%) 98 03/26/25 07:44 Oxygen Delivery Method Room Air 03/26/25 07:44 Discharge Plan Plan Patient Disposition: HOME (Self Care) Patient condition on transfer: Stable Prescriptions/Referrals Prescriptions/Med Rec: New loratadine 10 mg capsule 10 mg PO QDAY 7 Days Qty: 7 0RF celecoxib [Celebrex] 200 mg capsule 200 mg PO QDAY 7 Days Qty: 7 0RF fluticasone propionate [Flonase Allergy Relief] 50 mcg/actuation spray,suspension 1 spray intranasal QDAY Qty: 16 0RF Rx Instructions: administer into each nostril No Action tamsulosin 0.4 mg capsule 0.4 mg PO DAILY Patient Comments: TAKE 1 CAPSULE BY MOUTH TWICE A DAY FOR 30 DAYS fluticasone propion-salmeterol [Advair Diskus] 500-50 mcg/dose blister with device 2 inh INHALATION DAILY Patient Comments: INHALE 1 DOSE BY MOUTH TWICE DAILY. RINSE MOUTH AFTER USE FOR 30 DAYS insulin degludec [Tresiba FlexTouch U-200] 200 unit/mL (3 mL) insulin pen 15 unit SUBCUT BID Patient Comments: INJECT 50 UNITS SUBCUTANEOUSLY TWICE A DAY (DME) pen needle, diabetic 33 gauge x 1/4 needle See Rx Instructions .Route Qty: 100 0RF Rx Instructions: As directed (DME) insulin syringe-needle U-100 0.3 mL 31 x 1/2 syringe See Rx Instructions .Route Qty: 100 0RF Rx Instructions: As directed (DME) blood-glucose meter Kit See Rx Instructions .Route Qty: 1 0RF Rx Instructions: As directed (DME) FreeStyle Suzanne 2 [place] Misc See Rx Instructions .Route Qty: 1 0RF Rx Instructions: As directed (DME) FreeStyle Suzanne 2 Sensor Kit See Rx Instructions .Route Qty: 1 0RF Rx Instructions: As directed gabapentin 300 mg Capsule 300 mg PO TID insulin aspart U-100 [Novolog FlexPen U-100 Insulin] 100 unit/mL (3 mL) Insulin Pen 1 sliding scale dose SUBCUT USEASDIRECTD atorvastatin [Lipitor] 40 mg tablet 40 mg PO DAILY Patient Comments: TAKE 1 TABLET BY MOUTH EVERY DAY FOR 90 DAYS Jardiance 25 mg tablet 25 mg PO DAILY Rybelsus 14 mg tablet 14 mg PO DAILY Patient Comments: TAKE 1 TABLET DAILY AT LEAST 30 MINUTES BEFORE 1ST FOOD, BEVERAGE, OR OTHER ORAL MEDICINE OF DAY Referrals: Levi Kerr PA-C [Primary Care Provider] - In 1 week Problem List Clinical Impression: Allergic sinusitis, Olecranon bursitis Patient/Caregiver Discharge Instructions Additional Instructions: Please take loratadine 10 mg by mouth daily for 7 days Please take celecoxib 200 mg by mouth daily for olecranon bursitis Please use Flonase 1 spray intranasally per nostril every day for allergic rhinitis Follow-up with your primary care doctor within the next 7 days and ask for ophthalmologic referral if you continue to have eye pain If your symptoms worsen or if you develop worsening eye pain, vision changes, fever/chills - please come back to the ER immediately Print Language: Belarusian Stand Alone Forms: Sari Award Info., Patient Portal Info Letter MDM Narrative MDM hospital course (for use when minimal MDM required): HPI: 50-year-old male with past medical history of significant coronary artery disease status post quadruple bypass, DVT, type 2 diabetes on insulin, hyperlipidemia, CKD stage IV presenting to the ER on 03/26 for both right eye pain along with right elbow swelling and warmth. Of note, patient states that his right leg pain started about 1 week ago and has been consistently symptomatic with some pain with eye movements and some blurry vision. He denies any trauma to the area or any recent infections. He denies having fevers, chest pain but does state that he feels slightly short of breath. His right elbow pain started 2 days ago denies any trauma to the area, injection drug use or any new rashes. On assessment please refer to physical exam above; patient presented to the ED normotensive but tachycardic with a heart rate of 113, respiratory rate 20 afebrile satting 98 on room air. Pertinent lab findings included no leukocytosis but normocytic anemia, mild in nature with hemoglobin of 13.3, normal platelet count, CMP largely unremarkable other than worsening CKD with eGFR 32 likely from diabetic versus hypertensive nephropathy. Urinalysis shows proteinuria, glucosuria with 1+ hematuria but no signs of infection. Elbow x-ray does not show any fractures or any arthritic changes. Eye examination as above. #Allergic sinusitis #Olecranon bursitis, not septic Will discharge patient with the following instructions Please take loratadine 10 mg by mouth daily for 7 days Please take celecoxib 200 mg by mouth daily for olecranon bursitis Please use Flonase 1 spray intranasally per nostril every day for allergic rhinitis Follow-up with your primary care doctor within the next 7 days and ask for ophthalmologic referral if you continue to have eye pain If your symptoms worsen or if you develop worsening eye pain, vision changes, fever/chills - please come back to the ER immediately Medication Administration(s) Medication Administration History Discontinued Medications Fluorescein Sodium (Fluorescein Sod 1 Mg Strp) 1 mg BOTH EYES X1 ONE Stop: 03/26/25 10:13 Last Admin: 03/26/25 10:23 Dose: 1 mg Documented By: SUNNY Ketorolac Tromethamine (Ketorolac Inj 60 Mg/2 Ml Vial) 30 mg IM X1 ONE Stop: 03/26/25 07:57 Last Admin: 03/26/25 08:26 Dose: 30 mg Documented By: VG Tetracaine HCl (Tetracaine Pf [place] 0.5% 4 Ml Drpette) 1 drop BOTH EYES X1 ONE Stop: 03/26/25 09:30 Last Admin: 03/26/25 10:08 Dose: 1 drop Documented By: SUNNY
[2025-03-26] MEDS: TETRACAINE PF OP SOL 0.5% 4 ML DRPETTE 1 DROP BOTH EYES (10:08)
[2025-03-26 10:14] VITALS: BP 104/72; PULSE 103; RESP 16; TEMP 36.7; O2SAT 98
[2025-03-26] MEDS: FLUORESCEIN SOD 1 MG STRP BOTH EYES (10:23)
== END 2025-03-26 11:35 | disposition home or self-care (01) ==
PROVIDERS: Nurse Practitioner Family; Emergency Provider Emergency Medicine; PCP Physician Assistant
DX: J30.9 Allergic rhinitis, unspecified (principal); M70.21 Olecranon bursitis, right elbow
CPT/HCPCS: 36415; 73080; 80053; 81001; 83605; 84145; 85025; 87040; 96372; 99283; J1885